=== PATIENT | female | born 1955 | race Caucasian/White ===

== ENCOUNTER → 2024-01-25 12:40 | Outpatient (REF) | payer MEDICARE, OTHER, SELFPAY | LOC: HWRAD 12:40 | PROVIDERS: ATTENDING PHYSICIAN Internal Medicine | DX: Z12.31 Encounter for screening mammogram for malignant neoplasm of breast (principal); Z78.0 Asymptomatic menopausal state | CPT/HCPCS: 77063; 77067; 77080 ==

== ENCOUNTER → 2024-05-07 14:01 | Outpatient (REF) | payer MEDICARE, OTHER, SELFPAY | LOC: PAVMRI 14:01 | PROVIDERS: ATTENDING PHYSICIAN Psychiatry & Neurology Neurology; FAMILY PHYSICIAN Internal Medicine | DX: R53.1 Weakness (principal) | CPT/HCPCS: 70553; 72141; A9575 ==

== ENCOUNTER → 2024-11-30 13:27 | Outpatient (REF) | payer MEDICARE, OTHER, SELFPAY | LOC: PAVMRI 13:27 | PROVIDERS: ATTENDING PHYSICIAN Psychiatry & Neurology Neurology; FAMILY PHYSICIAN Student in an Organized Health Care Education/Training Program | DX: G91.2 (Idiopathic) normal pressure hydrocephalus (principal) | CPT/HCPCS: 70551 ==

== ENCOUNTER 2025-02-08 08:40 | Observation (INO) | payer MEDICARE, OTHER, SELFPAY ==
[2025-02-07 22:30] VITALS: BP 164/82
[2025-02-07 22:31] VITALS: BP 164/82
[2025-02-07 22:33] VITALS: BMI 26.4
[2025-02-07 22:47] LABS: % Basophils 0.3 % (0-2); % Eosinophils 0.8 % (0-6); % Immature Granulocytes 0.5 % (0-0.5); % Lymphocytes 18.1 % (20.5-51.1); % Monocytes 6.6 % (1.7-9.3); % Neutrophils 73.7 % (42.2-75.2); Absolute Eosinophils 0.1 10^3/uL (0-0.7); Absolute Lymphocytes 1.2 10^3/uL (1.2-3.4); Absolute Monocytes 0.4 10^3/uL (0.1-0.6); Absolute Neutrophils 4.7 10^3/uL (1.4-6.5); Hematocrit 38.9 % (37.0-47.0); Hemoglobin 13.3 g/dL (12.0-16.0); Mean Corp Hgb Conc. 34.2 g/dL (33.0-37.0); Mean Corpuscular Hgb 29.2 pg (27.0-31.0); Mean Corpuscular Volume 85.5 fL (81.0-99.0); Nucleated Red Blood Cells % 0 %; Platelet Count 193 10^3/uL (130-400); Red Blood Cell Count 4.55 10^6/uL (4.20-5.40); Red Cell Dist. Width 12.8 % (11.5-14.5); White Blood Cell Count 6.3 10^3/uL (4.8-10.8)
[2025-02-07 23:00] VITALS: BP 153/76
[2025-02-07 23:00] LABS: AST (SGOT) 28 U/L (14-36); Albumin 4.7 g/dl (3.5-5.0); Alkaline Phosphatase 63 U/L (38-126); Blood Urea Nitrogen 16 mg/dl (7-17); Calcium 9.3 mg/dl (8.4-10.2); Carbon Dioxide 17 mmol/L (22-30); Chloride 110 mmol/L (98-107); Estimated Creatinine Clearance 59 ml/min; Glucose 151 mg/dl (70-99); Potassium 3.9 mmol/L (3.5-5.1); Sodium 140 mmol/L (135-145); Total Bilirubin 0.7 mg/dl (0.2-1.3); Total Protein 7.1 g/dl (6.3-8.2); eGFR > 60.00
[2025-02-07 23:11] LABS: Troponin I < 0.012 ng/ml
[2025-02-07 23:12] LABS: ALT (SGPT) < 30 U/L (0-35)
[2025-02-08] VITALS (16 sets, daily range): BP systolic 120–167; BP diastolic 58–91; PULSE 74–91; BMI 24.6
[2025-02-08 01:34] LABS: Urine Albumin Negative (Neg - Trace); Urine Bilirubin Negative (Negative); Urine Character Cloudy (Clear); Urine Glucose Negative (Negative); Urine Ketone 2+ (Negative); Urine Leukocyte Negative (Negative); Urine Nitrite Negative (Negative); Urine Occult Blood 1+ (Negative); Urine Specific Gravity 1.015 (<1.030); Urine Urobilinogen Negative (Neg - 1+)
[2025-02-08 01:37] LABS: Urine Color Yellow
[2025-02-08 01:42] LABS: Urine Bacteria Few (Negative); Urine Red Blood Cell 0-2 /HPF (0-2); Urine Squamous Cell 0-2 /LPF (Few); Urine White Cell 0-2 /HPF (0-5)
[2025-02-08 01:50] LABS: Amphetamines Negative (Negative); Barbiturates Negative (Negative); Benzodiazepines Negative (Negative); Buprenorphine Negative (Negative); Cocaine Negative (Negative); Marijuana Negative (Negative); Methadone Negative (Negative); Methamphetamines Negative (Negative); Opiates Negative (Negative); Phencyclidine Negative (Negative); Tricyclic Antidepressants Negative (Negative)
[2025-02-08 02:11] LABS: Glucose - Point of Care 138 mg/dl (70-99)
--- NOTE | 2025-02-08 04:16 | ED.GENMED ---
History of Present Illness
General
Chief Complaint: Fainting/Passed Out
Source: patient
Time Seen by Provider: 02/08/25 03:33
History of Present Illness
History of Present Illness:
This patient is a 69-year-old female who states that she occasionally gets bladder urgency particularly at night. She went to go to the bathroom and she insist that she was just urinating although triage note describes patient trying to have a
bowel movement. She was told that her heard a noise and found her on the bedroom floor. She remembers EMS arriving and according to triage patient at that time was noted to be pale diaphoretic. Patient was given Zofran and fluids en
route. Patient states she feels 'pretty good', with the exception of a dry mouth. She denies chest pain, palpitations, dyspnea, headache, neck pain, numbness, tingling, focal weakness, abdominal pain, nausea, vomiting. However, patient states
that she also recalls that her speech was 'garbled' while trying to answer questions with EMS and even upon arrival here, now resolved. This is similar to her symptoms when she had a TIA in the past.
Case d/w , Kwesi...she was at counter...and started to pass out, he caught her. She could talk, he brought her over to sofa, episode lasted a few minutes. Notes she has alot of anxiety. She hadn't eaten as much as usual. Took motrin with
benadryl. THen, she was fine. Later in the day, he heard a boom and she was on floor next to bed, with a small amount of vomit next to her. She didn't even know that she was ont he floor, seemed 'out of it'. He brought her to the Bathroom, and
she had a small bm. Her bp was elevated, pulse 50...and then to 80. He walked her back to the bed and called EMS.
Past History
Past History
ED Past Medical History: Other (TIA, hypercholesterolemia)
ED Past Surgical History: Gynecological
Social History
Tobacco: Non-smoker
Alcohol: None
Drug: None
Personal:
Living: with family
Phy Exam
Physical Exam
Physical Exam:
GENERAL: Alert , in no apparent distress
EYE: pupils equal and reactive, EOMI, no nystagmus, no photophobia
NECK: Supple, no significant adenopathy.
ENT: o/p clr, mm mildly dry
CARDIAC: Regular rate and rhythm .
LUNGS: Clear breath sounds bilaterally, no acute respiratory distress, no wheezes/rales/rhonchi
ABDOMEN: Soft, without focal tenderness, no r/g, no cvat
NEUROLOGICAL: Alert and oriented, no focal neuro deficits, motor 5 out of 5, sensory intact, [id number] normal, cranial nerves II through XII intact
SKIN: Warm and dry, skin intact.
MUSCULOSKELETAL: No edema, well perfused.
PSYCH: Normal and appropriate interaction.
Course
Orders/Labs/Results
Orders:
Orders
02/07/25 22:33
Electrocardiogram (*1) Urgent
Reason for Study: Syncope
EKG- Treatment ONCE
02/07/25 22:37
Complete Blood Count/With Diff Urgent
Comprehensive Metabolic Panel Urgent
Troponin I Urgent
02/07/25 23:15
Straight Cath As Directed
Frequency: One time now
02/08/25 01:25
Urinalysis Reflex To Culture Urgent
Date Specimen was Collected: 02/08/25
Time Specimen was Collected: 00:51
Urine Drug Abuse Screen Urgent
Date Specimen was Collected: 02/08/25
Time Specimen was Collected: 00:51
Urine Microscopic Reflex Cult Urgent
02/08/25 04:14
Electrocardiogram (*1) Urgent
Reason for Study: Syncope
EKG- Treatment ONCE
02/08/25 04:15
CT Head W/o Iv Contrast Urgent
Comment:
Reason For Exam: syncope
0.9% Sodium Chloride 500 ml [Nss] 500 ml IV BOLUS
02/08/25 04:40
Troponin I Urgent
02/08/25 05:25
Lorazepam [Ativan] 1 mg IV NOW STA
02/08/25 Breakfast
Regular
At Your Request: Full Participation
Does patient need a safe tray?: No
02/08/25 08:36
Admit/Transfer Patient As Directed
Co-Sign Provider:
Level of Care: Observation services
Assign to:: Telemetry
Physician / Group: Zay Bryan
Diagnosis: Syncope
Reason for Telemetry: Syncope
Date to Stop Telemetry: 02/10/25
Time to Stop Telemetry: 11:00
PRN Pain Medication Management As Directed
May give lesser potent ordered pain med per pt: Yes
preference::
Protocol:: Medication orders for pain may be administered in a
manner that supports deferring to patient preference
when the pt is:
- Requesting an ordered lesser potent pain medication.
Least to most potent pain medications are defined
as: acetaminophen < NSAID < tramadol < opioids
(morphine, oxycodone, hydromorphone).
- Requesting a lesser dose of the same medication IF
ORDERED.
- Requesting a less intrusive route of administration
if both routes are prescribed by the provider (PO <
IV).
02/08/25 08:37
Code Status As Directed
Resuscitation Status: Full Code
02/08/25 08:56
D-Dimer Urgent
02/08/25 09:46
Acetaminophen [Tylenol] 650 mg PO Q4HPRN PRN
Bisacodyl [Dulcolax] 10 mg RECTAL [id number] PRN
Clonazepam [Klonopin] 0.5 mg PO HSPRN PRN
Docusate W/Senna [Senokot-S] 1 tablet PO BIDPRN PRN
Polyethylene Glycol Powder [Miralax] 17 grams PO DAILYPRN PRN
02/08/25 09:46
Activity As Directed
Activity Level: With Assistance
Orthostatic Vital Signs As Directed
Orthostatic VS Frequency: BID
Vital Signs As Directed
Frequency: Per unit guidelines
Pt Eval And Treat Routine
Activity Level: With Assistance
DX Deep Vein Thrombosis Video Routine
02/08/25 18:00
Enoxaparin Sodium [Lovenox] 40 mg SC QPM
Escitalopram Oxalate [Lexapro] 20 mg PO QPM
Rosuvastatin Calcium [Crestor] 10 mg PO QPM
02/09/25 06:00
Basic Metabolic Panel IN AM
Complete Blood Count/No Diff IN AM
02/09/25 08:00
Aspirin Low Dose EC [Aspir Low (Enteric Coated)] 81 mg PO DAILY
02/10/25 06:00
Basic Metabolic Panel IN AM
Complete Blood Count/No Diff IN AM
02/10/25 11:00
DC Protocol for Telemetry ONCE
Abnormal Lab Results
02/07/25 02/08/25 02/08/25
22:37 01:25 02:09
MPV 11.0 H fL
(7.4-10.4)
Lymphocytes % 18.1 L %
(20.5-51.1)
Chloride 110 H mmol/L
(98-107)
Carbon Dioxide 17 L mmol/L
(22-30)
Glucose 151 H mg/dl
(70-99)
Urine Ketones 2+ A
(Negative)
Ur Occult Blood Reflex 1+ A
(Negative)
Urine Bacteria (Reflex) Few A
(Negative)
POC Glucose 138 H mg/dl
(70-99)
02/07/25 22:37
02/07/25 22:37
Vital Signs
Initial and Last Documented VS:
Initial Vital Signs
Temp Pulse Resp BP Pulse Ox
98.3 F 73 18 164/82 99
02/07/25 22:30 02/07/25 22:30 02/07/25 22:30 02/07/25 22:30 02/07/25 22:30
Last Documented Vital Signs
Temp Pulse Resp BP Pulse Ox
98.9 F 72 16 120/58 95
02/08/25 16:13 02/08/25 16:13 02/08/25 16:13 02/08/25 16:13 02/08/25 16:13
*Critical Care Note
Total Time (30-74mins, 75-104mins- exclusive of procedures): Not Applicable
Update Note
Update Note:
Patient presents to the Emergency Department with reported syncopal event
Number and Complexity of Problems Addressed at the Encounter
� Chronic conditions affecting care:
� Acute Exacerbation and/or Progression of Chronic Illness:
� Differential Diagnosis includes: But not limited to micturition/defecation syncope, dehydration, electrolyte disorder, TIA, etc. etc.
Amount and/or Complexity of Data to be Reviewed and Analyzed
� I performed an independent evaluation of and my interpretation is:
EKG: First ECG difficult to read that that that I have ordered a second. ECG #2 normal sinus rhythm, in comparison to prior ECG patient's T wave inversions inferiorly and laterally are more pronounced
CT:
Xrays:
Laboratory Studies: Slightly elevated glucose, mildly low bicarb, urine demonstrates ketones consistent with suspected dehydration, UDS unremarkable, first troponin normal
Other:
� Review of other/old records reveals:
� Clinical information was obtained by an independent historian:her , Kwesi.
� Prescriptions/Medications Considered but not given:
� Further testing considered but not performed:
Risk of Complications and/or Morbidity or Mortality of Patient Management
� Social determinants of health affecting care:
� Discussion with other providers (PCP, Hospitalists, Consultants, etc):
� Escalation of care including admission/observation vs risk of discharge considered:Pt she had two syncopal events yesterday, unclear etiology. ?related to meds she is newly taking, espec anticholinregics such as mtorin with
benadryl and bentyl. Of note, pt had urinary retention here (relieved with straight cath here), also potentially related to these new meds. Suspect pt is mildly dehydrated. In regards to report of garbled speech, confirms that this
happened with each event. These are similar sxs to prior tia, and recommendation for workup (t/c MRI). Also ntoed to have increase in T wave inversions on ECG. No cp, trop times 2 wnl.
ED Attending Note
-
Portions of this chart may have been created with voice recognition software.� Occasional wrong word or��sound alike� substitutions may have occurred due to the inherent limitations of voice recognition software.
Discharge Plan
Departure
Patient Disposition: Admit
Date of Disposition: 02/08/25
Time of Disposition: 07:26
Admit to: Telemetry
Presentation/result/management discussed w/ accepting MD/DO: Hospitalist
Discharge Problem:
Syncope
Interventions
Interventions:
*Risk Screen - Suicide Last Done: 02/07/25 22:34
*General Assessment Last Done: 02/07/25 22:34
*Neglect/Abuse Screening Last Done: 02/07/25 22:34
*ED- Fall Risk Assessment Last Done: 02/07/25 22:34
*ED COVID-19 Vaccine History Last Done: 02/07/25 22:34
*Nursing Disposition Last Done: 02/08/25 09:03
ED- Cardiac Assessment Last Done: 02/07/25 22:34
ED- Neurological Assessment Last Done: 02/07/25 22:34
Discharge Date and Time
Discharge Date/Time: 02/08/25 09:34
[2025-02-08] MEDS: NSS 500 IV (04:57)
[2025-02-08 05:15] LABS: Troponin I < 0.012 ng/ml
[2025-02-08] MEDS: ATIVAN 1 MG IV (05:41)
--- NOTE | 2025-02-08 08:39 | HPS.HSE ---
Family Physician
-
Family Physician: Susan Sepulveda MD, Resident
Chief Complaint
-
Syncope
History of Present Illness
Patient is a 69-year-old female with past medical history of depression/anxiety, hyperlipidemia, history of TIA was brought into ER by family after patient passed out. Apparently patient took 2 Advil PM as was having difficulty sleeping, this
contains 38 mg of Benadryl in single pill. Patient woke up in the night and was in bathroom trying to void, apparently patient denies of having any history of bladder issue but states that she has to press externally on her lower abdomen to
completely empty her bladder. At certain point patient passed out and heard a loud thud in the bathroom and found patient on the floor. No reported head injury. Patient denies of having any prodromal symptoms of chest
discomfort/palpitation/diaphoresis/nausea . Patient woke up after a few minutes and patient remember that EMS staff patient getting patient in the ambulance by the time she regained consciousness. Evidently patient had garbled speech which cleared
as well. No reported jerking movements of body/bladder/bowel incontinence. No history of intracranial hemorrhage/seizures/trauma/motor vehicle accident.
Patient previous TIA episode was also an episode of garbled speech when patient was in store talking to her family member and noted to having incomprehensible speech. Neuro/cardio workup with MRI brain was negative and patient was not found to have
any cardiac arrhythmia at the time. Patient denies of having any true syncope episode
Medical History
Past Medical History
Past Medical History: Reports Other
Additional Past Medical History:
depression/anxiety, hyperlipidemia, history of TIA
Past Surgical History: Reports Other
Social History
Tobacco: Non-smoker
Alcohol: None
Drug: None
Family History
Family History: Not pertinent
Allergies / Home Medications
Allergies reflects when Allergies were last updated in [facility].
Home Medications with original date entered in [facility]
Allergy/Medication List:
Allergies
Allergy/AdvReac Type Severity Reaction Status Date / Time
No Known Allergies Allergy Verified 07/15/23 13:24
Home Medications
dicyclomine 10 mg capsule 10 mg PO ACHS PRN abdominal cramps 07/11/23
escitalopram oxalate 20 mg tablet 20 mg PO QPM Mental Health/Anxiety 07/11/23
rosuvastatin 10 mg tablet 10 mg PO QPM High Cholesterol 07/11/23
aspirin 81 mg tablet,delayed release 81 mg PO DAILY #0 tabs 07/13/23
clonazepam 0.5 mg tablet 0.5 mg PO HSPRN PRN anxiety/sleep 07/15/23
Review of Systems
-
A 12 point ROS was completed and negative except as noted: Yes
Physical Exam
Vital Signs
Vital Signs
Temp Pulse Resp BP Pulse Ox
98.3 F 75 22 141/91 97
02/07/25 22:30 02/08/25 07:00 02/08/25 07:00 02/08/25 07:00 02/08/25 06:20
Physical Exam
HEENT: No Oxygen
Respiratory: Clear
Cardiac: S1/S2 and Regular Rhythm; No Murmur or Rub
GI: Soft, Non Tender, Non Distended and Normal Bowel Sounds; No Organomegaly
Musculoskeletal: No Clubbing, No Cyanosis and No Edema
Skin: No Rash
Neuro: Nonfocal/grossly intact
Laboratory Results
-
02/07/25 22:37
02/07/25 22:37
Laboratory Results
Total Bilirubin 0.7 mg/dl (0.2-1.3) 02/07/25 22:37
AST 28 U/L (14-36) 02/07/25 22:37
ALT < 30 U/L (0-35) 02/07/25 22:37
Alkaline Phosphatase 63 U/L (38-126) 02/07/25 22:37
Troponin I < 0.012 ng/ml 02/08/25 04:40
Impression/Plan
-
1. Syncope
Presumed vasovagal in nature
- Patient woke up at night trying to void and was found down on the bathroom floor by
- Patient denies any prodromal symptoms of nausea/diaphoresis/shortness of breath/chest
- No previous history of syncope
- Not on any blood pressure medications at home
- EKG showing sinus rhythm with some T wave inversion in V3-V6 lead, troponin negative
- CT head without any acute abnormality
- No previous history of head trauma/intracranial bleed. No history of seizures.
- Maintain on telemetry monitoring for 24 hours
- Check orthostatic vitals twice daily
- Already got 1 L of normal saline, monitor
2. Speech changes
History of TIA
- Patient had history of TIA workup with MRI negative and cardiology/neurology evaluation was done in the past
- Patient noted to have garbled speech after regaining partial consciousness and this is likely due to syncope and not TIA/stroke
- Speech has cleared completely at this point continue monitoring
3. Mild toxic encephalopathy
- Patient somewhat disoriented, stated of taking 2 Advil PM yesterday night - total of 76mg of benadryl in it
- No other signs suggestive of any other acute pathology, monitor for
4. Hyperlipidemia
- Continue on home dose of rosuvastatin
5. Depression/anxiety
- Maintain on home dose of Klonopin/escitalopram
DVT PPX - lovenox
Full code
Total time spent : 78 mins
I personally saw and examined the patient.
I have reviewed all diagnostic interpretations and treatment plans as written.
Time includes patient management by me, time spent at the patients bedside, time to review lab and imaging results, discussing patient care, documentation in the medical record, and time spent with the family or caregiver and discussing care plan
with RN/Consultants.
--- NOTE | 2025-02-08 14:11 | PTOTSP ---
The patient was able to ambulate and perform stairs without difficulty, anticipates returning home at discharge and resuming work on Monday. No PT needs identified at this time, will sign off.
[2025-02-08] MEDS: LOVENOX 40 MG SC (17:57)
[2025-02-08] MEDS: CRESTOR 10 MG PO (17:57)
[2025-02-08] MEDS: LEXAPRO 20 MG PO (17:57)
[2025-02-08] MEDS: KLONOPIN 0.5 MG PO (21:06)
[2025-02-09 03:32] VITALS: BP 132/86
[2025-02-09 07:55] VITALS: BP 149/81; BP 150/71; BP 151/85; PULSE 63; PULSE 71; PULSE 83
[2025-02-09 08:35] LABS: Hematocrit 33.2 % (37.0-47.0); Hemoglobin 11.2 g/dL (12.0-16.0); Mean Corp Hgb Conc. 33.7 g/dL (33.0-37.0); Mean Corpuscular Hgb 29.6 pg (27.0-31.0); Mean Corpuscular Volume 87.8 fL (81.0-99.0); Mean Platelet Volume 11.6 fL (7.4-10.4); Platelet Count 154 10^3/uL (130-400); Red Blood Cell Count 3.78 10^6/uL (4.20-5.40); Red Cell Dist. Width 13.2 % (11.5-14.5); White Blood Cell Count 7.2 10^3/uL (4.8-10.8)
[2025-02-09] MEDS: ASPIR LOW (ENTERIC COATED) 81 MG PO (08:37)
[2025-02-09 08:43] LABS: Blood Urea Nitrogen 15 mg/dl (7-17); Calcium 8.9 mg/dl (8.4-10.2); Carbon Dioxide 22 mmol/L (22-30); Chloride 115 mmol/L (98-107); Estimated Creatinine Clearance 60 ml/min; Glucose 104 mg/dl (70-99); Potassium 3.4 mmol/L (3.5-5.1); Sodium 143 mmol/L (135-145); eGFR > 60.00
--- NOTE | 2025-02-09 09:59 | W.PN.HOSP.TC ---
Today's Communication/Plan
-
d/c home
Assessment / Plan
Assessment / Plan
1. Syncope - vasovagal in nature
- Patient woke up at night trying to void and was found down on the bathroom floor by
- Patient denies any prodromal symptoms of nausea/diaphoresis/shortness of breath/chest
- No previous history of syncope
- Not on any blood pressure medications at home
- EKG showing sinus rhythm with some T wave inversion in V3-V6 lead, troponin negative
- CT head without any acute abnormality
- No previous history of head trauma/intracranial bleed. No history of seizures.
- No cardiac arrhythmia on teletypesetter monitor
- Ortho vitals negative
2. Speech changes
History of TIA
- Patient had history of TIA workup with MRI negative and cardiology/neurology evaluation was done in the past
- Patient noted to have garbled speech after regaining partial consciousness and this is likely due to syncope and not TIA/stroke
- Speech has cleared completely at this point continue monitoring
3. Mild toxic encephalopathy - resolved
- Patient somewhat disoriented, stated of taking 2 Advil PM in night before admission - total of 76mg of benadryl in it
- No other signs suggestive of any other acute pathology, monitor for
4. Hyperlipidemia
- Continue on home dose of rosuvastatin
5. Depression/anxiety
- Maintain on home dose of Klonopin/escitalopram
6. Elevated D-dimer
- CT chest PE negative
7. Right lower lobe pulmonary nodule
- Millimeter size, non smoker. f/u with pulm
DVT PPX - lovenox
Full code
More than 30 minutes spent in discharge including
Final examination of the patient
Summarizing hospital stay
Instructions for continuing care to all relevant caregivers
Preparation of discharge records, prescriptions, and referral forms
Total time spent (in minutes):39 mins
Anticipated Discharge: Today
Subjective/Interval History
-
Date of Service: February 09, 2025
Resting comfortably in bed
No cardiac arrhythmia noted on teletypesetter monitor
No further episodes of syncope
Objective Data
-
Labs:
Laboratory Results
02/09/25 02/09/25
07:02 07:03
WBC 7.2
Hgb 11.2 L
Hct 33.2 L
Plt Count 154 D
Sodium 143
Potassium 3.4 L
Chloride 115 H
Carbon Dioxide 22
BUN 15
Creatinine 0.7
Glucose 104 H
Calcium 8.9
Vital Signs:
Vital Signs
Temp Pulse Resp BP Pulse Ox
98.4 F 63 16 150/71 97
02/09/25 07:55 02/09/25 07:55 02/09/25 07:55 02/09/25 07:55 02/09/25 09:53
I&O
02/08/25 02/09/25 02/10/25
06:59 06:59 06:59
Output Total 1250 / 1250
Balance -1250 / -1250
Review of Systems
-
All other systems: Reviewed and negative
Physical Exam
-
General: No Apparent Distress and Comfortable
HEENT: Negative Oxygen
Respiratory: Clear to Auscultation
Cardiac: Regular Rhythm and S1/S2; Negative Murmur or Rub
GI: Soft, Nontender and Nondistended
Musculoskeletal: No Edema
Neuro: Awake, Alert, Oriented, No Motor Deficits and Nonfocal/Grossly Intact
Psych: Calm
[2025-02-09 11:37] VITALS: BP 127/59
--- NOTE | 2025-02-09 11:47 | CM ---
Patient seen bedside; cleared for discharge to home. Pt is (I) amb and adls. Lives with her who will drive her home.
Patient denies need for VN.
OBS form reviewed, signed and added to chart.
Plan:home no needs.
--- NOTE | 2025-02-09 13:28 | W.DCSUMMARY ---
Discharge Summary
Discharge Data
Date of Admission: 02/08/25
Date of Discharge: 02/09/25
-
Pending Results: No
Hospital Course
Discharging Physician : Dr Zay Bryan
Disposition : To home
Primary care physician : Susan Sepulveda MD, Resident
Principal Discharge diagnosis :
Vasovagal syncope
Mild toxic encephalopathy
Pulmonary nodule
Speech changes post syncope
Chronic Discharge diagnosis :
History of transient ischemic attack
Hyperlipidemia
Depression/anxiety
Hospital Course :
69-year-old female with no mentioned past medical history came to ER after patient passed out in the bathroom. Patient apparently woke up in the middle of night and was straining to urinate. Patient does complain of difficulty voiding in the past
and on top of that patient took 2 Advil PM which contains high amount of Benadryl. Patient was found on the floor by the no reported head injury. Patient regained consciousness and was having some slurring of speech which cleared later as
well. In ER CT head was negative for any acute issues. D-dimer was elevated and CT chest PE was negative for any clot. Incidentally was found to 4 mm right lower lobe pulmonary nodule. patient was monitored in the hospital for 24 hours. EKG
showed known right bundle branch block. Orthostatic vitals were negative. Telemetry monitoring did not show any cardiac arrhythmia. Patient did not have any further recurrence. Patient was advised to avoid any anticholinergic is likely worsening
her underlying urinary symptoms. Patient was cleared to be discharged to home level at this point.
Important imaging findings :
None
Procedure findings :
None
Discharge Plan
-
Patient Disposition: Home (Routine Discharge)
Discharge Diagnosis/Procedures: Vasovagal syncope
Condition: Fair
Diet: Regular
Activity: As tolerated
Driving Restrictions: As prior to admission
Bathing Restrictions: OK to Shower
Referrals:
Chris Cook MD [Active] -
Susan Sepulveda MD, Resident [Family Provider] - in one week
Additional Discharge Medication Instructions: Stop benadryl or anitcholinergic medication as possible.
Prescriptions:
Continued
escitalopram oxalate 20 mg tablet
20 mg PO QPM
rosuvastatin 10 mg tablet
10 mg PO QPM
aspirin 81 mg Tablet,Delayed Release (Dr/Ec)
81 mg PO DAILY Qty: 0 0RF
clonazepam 0.5 mg tablet
0.5 mg PO HSPRN PRN (Reason: anxiety/sleep)
Patient Comments:
07/15/2023: last filled 04/25/23, 30 tabs for 30 days from [facility]
Rx Instructions:
*Takes before Eszopiclone*
Discontinued
dicyclomine 10 mg capsule
10 mg PO ACHS PRN (Reason: abdominal cramps)
Discharge Orders:
Discharge Patient (As Directed); Ordered 02/09/25
Ordered By: Zay Bryan
Discharge Date and Time
Discharge Date/Time: 02/09/25 12:42
Print Language: [place]
[2025-02-10 19:04] LABS: Hepatitis C Antibody Negative (Negative)
== END 2025-02-09 12:42 | disposition home or self-care (01) ==
LOC: 4 EAST ACU 08:40
PROVIDERS: Student in an Organized Health Care Education/Training Program; ADMITTING PHYSICIAN Hospitalist; EMERGENCY PHYSICIAN Emergency Medicine; FAMILY PHYSICIAN Student in an Organized Health Care Education/Training Program
DX: R55 Syncope and collapse (principal); Z86.73 Personal history of transient ischemic attack (TIA), and cerebral infarction without residual deficits; G92.9 Unspecified toxic encephalopathy; F41.9 Anxiety disorder, unspecified; F32.A Depression, unspecified; R91.1 Solitary pulmonary nodule; I45.10 Unspecified right bundle-branch block
CPT/HCPCS: 51701; 51798; 70450; 71275; 80048; 80053; 80306; 81003; 81015; 82962; 84484; 85025; 85027; 85379; 86803; 93005; 96361; 96374; 97161; 99285; G0378; Q9967

== ENCOUNTER 2025-03-30 20:41 | Inpatient (IN) | payer MEDICARE, OTHER, SELFPAY ==
[2025-03-30] VITALS (36 sets, daily range): BP systolic 117–208; BP diastolic 59–103; BMI 23.3
--- NOTE | 2025-03-30 18:58 | ED.CVA ---
History of Present Illness
General
Chief Complaint: CVA/TIA Symptoms
Source: ambulance crew
Exam Limitations: clinical condition and non verbal-adult
Time Seen by Provider: 03/30/25 18:57
Nursing documentation reviewed up to this point in time: agreed with
Onset of Stroke Symptoms
Onset of symptoms known: Yes
Date of onset of symptoms: 03/30/25
Time of onset of symptoms: 17:00
Time pt last seen normal is known: Yes
Date last time pt seen normal: 03/30/25
Time last time pt seen normal: 17:00
History of Present Illness
History of Present Illness:
69-year-old female prehospital stroke alert last normal at 5 PM apparently at the dinner aphasic EMS was called hypertensive, prehospital stroke alert called
Past History
Past History
ED Past Medical History: Other (TIA, hypercholesterolemia)
ED Past Surgical History: Gynecological
Social History
Tobacco: Non-smoker
Alcohol: None
Drug: None
Personal:
Living: with family
Phy Exam
Physical Exam
Physical Exam:
Physical Exam
General: no apparent distress, not acutely ill
Neck: No tongue bite
Heart: s1/s2 regular rate and rhythm, no murmur. equal radial pulses.
Lungs: no acute respiratory distress. clear bilaterally
Abdomen: Nontender
Neuro: Expressive aphasia moving all extremities question visual field defect
Skin: no rash
Psychiatric: well kept. interactive and cooperative
Extremities: no edema.
Course
Orders/Labs/Results
Orders:
Orders
03/30/25 18:46
CT HEAD STROKE ALERT W/o Cont Stat
Comment:
Reason For Exam: aphasia since 1699
03/30/25 18:48
CT HEAD/NECK ANG STROKE ALERT Stat
Comment:
Reason For Exam: aphasia since 1700
03/30/25 19:00
EKG [Electrocardiogram (*1)] Urgent
Reason for Study: TIA/Stroke
EKG- Treatment ONCE
03/30/25 19:07
Labetalol HCl [Trandate] 20 mg IV NOW STA
03/30/25 19:08
Tenecteplase [Tnkase] 16 mg Syringe [Syringe Non-Pump] 0 ml IV NOW
Provider explained risk/benefits to patient &/or caregiver?: Yes
03/30/25 19:16
Complete Blood Count/With Diff Stat
Comprehensive Metabolic Panel Stat
PTT Stat
Prothrombin Time Stat
03/30/25 19:33
Labetalol HCl [Trandate] 20 mg .ROUTE .STK-MED ONE
03/30/25 19:40
Labetalol HCl [Trandate] 25 mg IV NOW STA
03/30/25 19:41
HydrALAZINE [Apresoline] 20 mg .ROUTE .STK-MED ONE
03/30/25 19:42
Labetalol HCl [Trandate] 20 mg .ROUTE .STK-MED ONE
03/30/25 19:51
HydrALAZINE [Apresoline] 10 mg IV NOW STA
03/30/25 19:55
Nicardipine 40 mg/200 ml [Cardene] 40 mg in 200 ml .ROUTE .STK-MED
03/30/25 20:00
Nicardipine 40 mg/200 ml [Cardene] 40 mg in 200 ml IV PER PROTOCOL
Initial dose in mg/hr, then titrate:: 5
Titrate to keep:: BP < 180/105 mmHg
Titrate by mg/hr:: 2.5 mg/hr
Frequency of titrations (minutes):: 5-15 minutes
Maximum dose in mg/hr:: 15
Begin to taper infusion when:: Remained at goal for 2hrs
Taper by mg/hr:: 2.5 mg/hr
Frequency of taper (minutes) if patient maintains goal:: every 15-30 minutes
Taper to off?: Yes
If infusion off & no longer maintaining goal:: Contact Provider
03/30/25 20:27
Admit/Transfer Patient As Directed
Co-Sign Provider:
Level of Care: Inpatient admission
Assign to:: ICU
Physician / Group: [facility]
Diagnosis: TIA/CVA
Reason for Hospitalization: Stroke
Expected length of stay greater than two midnights?: Yes
ELOS- Estimated Length of Stay in days: 2
I certify the patient meets the requirements for IP care: Yes
PRN Pain Medication Management As Directed
May give lesser potent ordered pain med per pt: Yes
preference::
Protocol:: Medication orders for pain may be administered in a
manner that supports deferring to patient preference
when the pt is:
- Requesting an ordered lesser potent pain medication.
Least to most potent pain medications are defined
as: acetaminophen < NSAID < tramadol < opioids
(morphine, oxycodone, hydromorphone).
- Requesting a lesser dose of the same medication IF
ORDERED.
- Requesting a less intrusive route of administration
if both routes are prescribed by the provider (PO <
IV).
03/30/25 20:28
Code Status As Directed
Resuscitation Status: Full Code
Abnormal Lab Results
03/30/25 03/30/25
19:10 19:16
RBC 3.99 L 10^6/uL
(4.20-5.40)
Hct 34.4 L %
(37.0-47.0)
MPV 10.6 H fL
(7.4-10.4)
APTT 23.0 L Sec
(23.4-35.0)
Chloride 110 H mmol/L
(98-107)
BUN 24 H mg/dl
(7-17)
Glucose 114 H mg/dl
(70-99)
POC Glucose 118 H mg/dl
(70-99)
03/30/25 19:16
03/30/25 19:16
Vital Signs
Initial and Last Documented VS:
Initial Vital Signs
Pulse Resp BP
81 29 208/86
03/30/25 19:04 03/30/25 19:04 03/30/25 19:04
Last Documented Vital Signs
Temp Pulse Resp BP Pulse Ox
99.1 F 80 28 142/72 100
03/30/25 19:09 03/30/25 20:36 03/30/25 20:36 03/30/25 20:36 03/30/25 19:30
MDM/Problems Addressed
Differential Diagnosis Includes:
Stroke intracerebral hemorrhage seizure hypertensive urgency
MDM/Problems Addressed:
Aphasia
*Pulse Oximetry
SaO2: 99
Oxygen Mode of Delivery: Room air
Patient hypoxic: no
*EKG
Interpreted by ED Provider?: Yes
Interpretation: normal
Comparison EKG: no comparison EKG present
Heart Rate: 98
Rate: normal
Rhythm: sinus
Ischemia: non-specific ST changes
*Travel Nurse Interpretation
Rate: normal
Interpretation: normal
Heart Rate: 98
*Critical Care Note
Total Time (30-74mins, 75-104mins- exclusive of procedures): 75
Update Note
Update Note:
Update, CT reports noted, blood pressure up suspect she is a candidate for TNK will give labetalol
8:15 PM update
Numerous conversations with patient daughter spouse over the phone neurology over telehealth, treated with labetalol x 2 hydralazine Cardene risk benefits reviewed with daughter for TNK
Differential would include CVA hypertensive cephalopathy, anxiety drug withdrawal
ED Attending Note
-
Portions of this chart may have been created with voice recognition software.� Occasional wrong word or��sound alike� substitutions may have occurred due to the inherent limitations of voice recognition software.
Discharge Plan
Departure
Patient Disposition: Admit
Date of Disposition: 03/30/25
Time of Disposition: 20:16
Admit to: ICU
Presentation/result/management discussed w/ accepting MD/DO: Hospitalist
Patient with high blood pressure during this ER visit?: Yes
Condition: Critical
Discharge Problem:
Aphasia
Interventions
Interventions:
*Risk Screen - Suicide Last Done: 03/30/25 19:07
*General Assessment Last Done: 03/30/25 19:07
*Neglect/Abuse Screening Last Done: 03/30/25 19:07
*ED- Fall Risk Assessment Last Done: 03/30/25 19:09
ED- Neurological Assessment Last Done: 03/30/25 19:01
[2025-03-30 19:11] LABS: Glucose - Point of Care 118 mg/dl (70-99)
[2025-03-30] MEDS: TRANDATE 20 MG IV (19:24)
[2025-03-30 19:28] LABS: Hematocrit 34.4 % (37.0-47.0); Hemoglobin 12.0 g/dL (12.0-16.0); Mean Corp Hgb Conc. 34.9 g/dL (33.0-37.0); Mean Corpuscular Volume 86.2 fL (81.0-99.0); Nucleated Red Blood Cells % 0 %; Platelet Count 200 10^3/uL (130-400); Red Cell Dist. Width 13.2 % (11.5-14.5)
[2025-03-30 19:38] LABS: INR 0.92; PT 12.7 Sec (11.4-14.6)
[2025-03-30 19:39] LABS: APTT 23.0 Sec (23.4-35.0)
[2025-03-30] MEDS: TRANDATE 25 MG IV (19:41)
[2025-03-30 19:43] LABS: ALT (SGPT) 17 U/L (0-35); AST (SGOT) 26 U/L (14-36); Albumin 4.4 g/dl (3.5-5.0); Alkaline Phosphatase 67 U/L (38-126); Blood Urea Nitrogen 24 mg/dl (7-17); Calcium 9.6 mg/dl (8.4-10.2); Carbon Dioxide 22 mmol/L (22-30); Chloride 110 mmol/L (98-107); Glucose 114 mg/dl (70-99); Potassium 4.5 mmol/L (3.5-5.1); Sodium 138 mmol/L (135-145); Total Protein 7.0 g/dl (6.3-8.2); eGFR > 60.00
[2025-03-30] MEDS: APRESOLINE 10 MG IV (19:51)
[2025-03-30] MEDS: CARDENE 200 IV (20:00)
[2025-03-30] MEDS: TNKASE 3.2 MG IV (20:06)
--- NOTE | 2025-03-30 20:20 | HPS.HSE ---
Family Physician
-
Family Physician: NOT KNOW UNKNOWN - PT DOES
Chief Complaint
-
Aphasia
History of Present Illness
This is a 69-year-old female with past medical history significant for hyperlipidemia, prior history of a TIA, and depression and anxiety who presents to the emergency department with episode of aphasia since 5 PM.
Patient was seen in urgent care 2 days ago and found to be hypertensive to the 170s systolic. She was not started on any medications at that time. She has chronic anxiety and has been having difficulty sleeping which she uses clonazepam 0.5 mg at
night for. She is also on Lexapro 50 mg daily in the evenings. She has otherwise been in usual state of health and that pain out with daughter during the day when she got home. She felt dehydrated and was about to give her some more
hydration. Daughter reported that the patient started having difficulty speaking. This is similar episodes on her prior evaluations for TIAs twice in the past. EMS was called and patient was really brought to the emergency department under a
stroke alert. She had no focal neurological deficits otherwise.
In the emergency department patient was hypertensive blood pressure currently 158/71 on nicardipine, pulse rate 81 she is satting 100% with a temp of 99.1.
ECG shows normal sinus rhythm at a rate of 76. No acute ischemic changes. CBC unremarkable, electrolyte BUN/creatinine normal.
CT angio of the head and neck shows no evidence of intracranial high-grade stenosis or large vessel occlusion, and minimal calcification involving the right proximal right ICA noted, beaded appearance of the cervical internal carotid arteries
bilaterally suggestive of fibromuscular dysplasia but no evidence of high-grade stenosis.
Medical History
Past Medical History
Past Medical History: Reports Other
Additional Past Medical History:
depression/anxiety, hyperlipidemia, history of TIA
Past Surgical History: Reports Other
Social History
Tobacco: Non-smoker
Alcohol: None
Drug: None
Family History
Family History: Not pertinent
Allergies / Home Medications
Allergies reflects when Allergies were last updated in [facility].
Home Medications with original date entered in [facility]
Allergy/Medication List:
Allergies
Allergy/AdvReac Type Severity Reaction Status Date / Time
No Known Allergies Allergy Verified 07/15/23 13:24
Home Medications
dicyclomine 10 mg capsule 10 mg PO ACHS PRN abdominal cramps 07/11/23
escitalopram oxalate 20 mg tablet 20 mg PO QPM Mental Health/Anxiety 07/11/23
rosuvastatin 10 mg tablet 10 mg PO QPM High Cholesterol 07/11/23
aspirin 81 mg tablet,delayed release 81 mg PO DAILY #0 tabs 07/13/23
clonazepam 0.5 mg tablet 0.5 mg PO HSPRN PRN anxiety/sleep 07/15/23
Review of Systems
-
Constitutional: Reports No Symptoms
EENT: Reports No Symptoms
Respiratory: Reports No Symptoms
Cardiac: Reports No Symptoms
Abdomen/GI: Reports No Symptoms
: Reports No Symptoms
Musculoskeletal: Reports No Symptoms
Skin: Reports No Symptoms
Neurological: Reports Other (Difficulty speaking)
Endocrine: Reports No Symptoms
Hematologic/Lymphatic: Reports No Symptoms
Psych: Reports No Symptoms
Physical Exam
Vital Signs
Vital Signs
Temp Pulse Resp BP Pulse Ox
99.1 F 90 21 123/88 100
03/30/25 19:09 03/30/25 20:16 03/30/25 20:16 03/30/25 20:16 03/30/25 19:30
Physical Exam
General: Well Developed, Well Nourished and No Apparent Distress
HEENT: NormoCephalic, Moist mucous membranes and Atraumatic
Respiratory: Clear
Cardiac: S1/S2 and Regular Rhythm; No Murmur or Rub
GI: Soft, Non Tender, Non Distended and Normal Bowel Sounds; No Organomegaly
Rectal: Deferred by Provider
Musculoskeletal: No Clubbing, No Cyanosis and No Edema
Skin: No Rash
Neuro: Nonfocal/grossly intact and Other (Aphasia, word finding difficulties with jumbled words)
Laboratory Results
-
03/30/25 19:16
03/30/25 19:16
Laboratory Results
PT 12.7 Sec (11.4-14.6) 03/30/25 19:16
INR 0.92 03/30/25 19:16
APTT 23.0 Sec (23.4-35.0) L 03/30/25 19:16
Total Bilirubin 0.8 mg/dl (0.2-1.3) 03/30/25 19:16
AST 26 U/L (14-36) 03/30/25 19:16
ALT 17 U/L (0-35) 03/30/25 19:16
Alkaline Phosphatase 67 U/L (38-126) 03/30/25 19:16
Data Reviewed
-
CT Scan: Report Reviewed by me
Medical Tests (Nuc Med, Echo, EKG etc): Image Personally Visualized and interpreted
Lab Data: Labs Reviewed by me
Old Records: Reviewed
Impression/Plan
-
IMPRESSION:
69-year-old with past medical history of TIA, hyperlipidemia anxiety and depression, recent episode of syncope without any identified etiology who presents to the emergency department with acute onset of aphasia about [address] head negative,
CT angio negative for acute stenosis, aneurysm, bleed or acute stroke, hypertensive but otherwise hemodynamically stable. ECG is unremarkable. Electrolyte BUN/creatinine were all normal, CBC normal. Currently NIHSS equals 1.
PLAN:
CVA -CVA with hypertensive urgency/emergency
-Admit to ICU
-Status post tenecteplase, continue with tenecteplase/thrombolytic precaution
-SCDs,
-Verify aspirin in a.m.
-Neurochecks every 6
-MRI in a.m.
-Echo
- Neurology consult
- Patient Appointment Coordinator consult
-Physiatry consult
-PT OT
-Lipid panel, A1c
-Nicardipine drip to maintain SBP/DBP of 180/105 (discontinued secondary to drop in blood pressure). Will continue with as needed labetalol for now.
Code status - Full cpde
[2025-03-30 21:17] LABS: Glucose - Point of Care 119 mg/dl (70-99)
[2025-03-30] MEDS: PRECEDEX 100 IV (22:00)
[2025-03-30 22:56] LABS: Urine Character Clear (Clear)
[2025-03-30 23:06] LABS: Urine Red Blood Cell 0-2 /HPF (0-2); Urine Squamous Cell 0-2 /LPF (Few); Urine White Cell 0-2 /HPF (0-5)
--- NOTE | 2025-03-30 23:45 | PTCARENOTE ---
pt rec'd from ER around 2100. ICU HADOOP APPLICATION DEVELOPER at bedside. TNK given in MAR at 2006. handoff NIH done, NIH 8 (aphasia noted, pt ARANGO evenly, pupils 6mm b/l brisk, visible droop to R side, pt unable to smile or raise eyebrows, does not follow finger on
assessment). pt extremely restless. pt quickly placed in 4 pt restraints for safety after attempting to get OOB and thrashing around. ICU HADOOP APPLICATION DEVELOPER reached out to neuro MD, precedex gtt initiated. Cardene off upon admission. BP goal <180/105. SR on
monitor. SCDs on. on RA, satting 100%. remains NPO, unable to perform swallow eval. PIVs intact. at bedside during admission, updated on plan of care by this RN and ICU HADOOP APPLICATION DEVELOPER. MRI ordered for AM.
bladder scan @ 2215 for >1200. during straight cath, pt HR dropped to 20/30s, was minimally responsive, and then vomited. pt HR normalized, BP remained stable. 1200ml output noted. ICU HADOOP APPLICATION DEVELOPER to bedside. wilder in place for retention. urine sent. repeat
head CT ordered, pt taken down for scan. remains in 4 points and Precedex remains off. BMP sent.
2330- pt with more periods of intermittent clear speech. able to raise eyebrows at this time, but not smile. remains restless in bed. care continues.
[2025-03-31] VITALS (54 sets, daily range): BP systolic 108–170; BP diastolic 60–106; BMI 23.3
[2025-03-31 00:10] LABS: Blood Urea Nitrogen 20 mg/dl (7-17); Calcium 9.6 mg/dl (8.4-10.2); Carbon Dioxide 21 mmol/L (22-30); Chloride 109 mmol/L (98-107); Estimated Creatinine Clearance 65 ml/min; Glucose 183 mg/dl (70-99); Potassium 3.7 mmol/L (3.5-5.1); Sodium 139 mmol/L (135-145); eGFR > 60.00
[2025-03-31 03:54] LABS: Hematocrit 34.1 % (37.0-47.0); Hemoglobin 11.9 g/dL (12.0-16.0); Mean Corp Hgb Conc. 34.9 g/dL (33.0-37.0); Mean Corpuscular Volume 86.1 fL (81.0-99.0); Platelet Count 218 10^3/uL (130-400); Red Cell Dist. Width 13.2 % (11.5-14.5)
[2025-03-31 03:59] LABS: INR 1.02; PT 13.7 Sec (11.4-14.6)
[2025-03-31 04:08] LABS: Blood Urea Nitrogen 16 mg/dl (7-17); Calcium 9.6 mg/dl (8.4-10.2); Carbon Dioxide 20 mmol/L (22-30); Chloride 108 mmol/L (98-107); Estimated Creatinine Clearance 65 ml/min; Glucose 169 mg/dl (70-99); HDL Cholesterol 73 mg/dl; LDL Cholesterol, Calculated 79 mg/dl; Magnesium 1.8 mg/dl (1.6-2.3); Potassium 3.6 mmol/L (3.5-5.1); Sodium 138 mmol/L (135-145); Very Low Density Lipoprotein 14 mg/dl (0-30); eGFR > 60.00
[2025-03-31 04:30] LABS: VerifyNow Aspirin 525 ARU
[2025-03-31 04:37] LABS: APTT 18.3 Sec (23.4-35.0)
--- NOTE | 2025-03-31 04:38 | PTCARENOTE ---
AM labs sent. pt more calm at this time. speech noticeably more clear at times, still aphasic. slow to follow commands at times but eventually is able to. NIH 6 currently. call navarro in reach. care continues.
--- NOTE | 2025-03-31 04:46 | W.PN.UPDATE ---
Update Note
Progress Note Update
03/30/25
220- Patient having significant agitation and restlessness. Globally aphasic and having difficultly with listening to re-orientation. Patient so agitated she was becoming harm to herself and staff and needed to be 4 point restrained. at
bedside and feels she is having lots of anxiety and has terrible anxiety at baseline. Called Dr. Browning, neurologist, recommendations given for Precedex gtt vs benzodiazepines for severe anxiety and patient safety if needed. Precedex gtt ordered and
initiated, would be more beneficial to be able to titrate to observe neurological examination.
2230- Patient had not voided, noted via bladder scan patient to have >1200cc of urine. During urinary catheter insertion, patient had bradycardia with heart rate down to 10. She vomited moderate amount, never lost consciousness and heart rate
returned back to 80s when the urinary catheter started draining. Probable vasovagal/micturition syncope event secondary urinary draining after catheter insertion and urinary retention. Patient continues to be globally aphasia and was not able to
verbalize, continues to have difficulty understanding complex commands, can intermittently follow simple commands. Concern after syncopal event that patient voided 1200cc of clear urine. Unclear if urinary retention is ongoing underlying problem
vs stroke vs intracranial swelling. Called Dr. Browning, neurologist, Dr. Manriquez spine nurse, and Dr. Snell hospitalist with acute urinary retention and large urinary output with clear urine recommendations received ordered Ctscan of head w/o IV
contrast and urinary labs (sodium/osmo)/bmp. Urine sodium 111 but urine osmolality 351; Ctscan of the head negative. Patient restless but not as agitated as previously, wilder in for acute retention.
In review of the patient's chart and previous stay January 2025 patient had: Vasovagal syncope, Mild toxic encephalopathy, and Speech changes post syncope.
--- NOTE | 2025-03-31 07:34 | CON.INTV ---
Addendum entered and electronically signed by Erna Patten MD 03/31/25 17:30:
Patient transferred out of ICU. We will sign off. Please call with questions
Original Note:
Consultation
Consultation Request
Date/Time Consultation Requested: 03/31
Date/Time Consultation Performed: 03/31
Reason for Consultation: Critical care
Medical History
-
History of Present Illness:
History primarily obtained from the chart as patient with expressive aphasia at this time. 69-year-old female with history of stroke in the past, TIA, hypercholesterolemia who presents with aphasia while at dinner at approximately 5 PM. Stroke
alert was called, patient was brought to [facility] where upon arrival pulse 81, breathing at 29, blood pressure 208/86. Initial imaging unremarkable. TNK was administered at 2005. Patient was also given labetalol, hydralazine for
elevated blood pressure. Events overnight noted. Patient became increasingly agitated, repeat imaging was obtained. Patient with history of significant anxiety noted. According to records, patient has had similar presentation with TIA in the
past. We are asked to help from critical care standpoint
Of note, patient had what sounds like vasovagal event with Singh catheter placement overnight with bradycardia, brief asystole with resolved spontaneously. Patient with history of vasovagal syncope in the past
At this time, NIH score is improved down to 4. Patient with no evidence of focal weakness, moving all extremities, pupils are equal. She does have an expressive aphasia. History of vasovagal syncope in the past. History of pulmonary nodule
Recent hospital stay and discharged 02/09/2025 for slurred speech, loss of consciousness. At that time 4 mm right lower lobe nodule was identified
.
PMH: Hypertension, hyperlipidemia, history of TIA x 2 with expressive aphasia
Past Medical History
Past Medical History: None (See above)
Past Surgical History: None (See above)
Social History
Tobacco: Non-smoker
Alcohol: None
Drug: None
Personal:
Living: With Family
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
Family History
Family History: Reviewed & Not Pertinent (sister at age 68 from PE following travel, one brother alive. 1 daughter with asthma. parents F from ca? mother valvular dz)
Allergies / Home Medications
Allergies
Allergy/AdvReac Type Severity Reaction Status Date / Time
No Known Allergies Allergy Verified 03/30/25 18:49
Home Medications
�Medication �Instructions �Recorded �Confirmed �Last Taken �Type
escitalopram oxalate 20 mg tablet 20 mg PO QPM Mental Health/Anxiety 07/11/23 02/08/25 07/14/23 History
rosuvastatin 10 mg tablet 10 mg PO QPM High Cholesterol 07/11/23 02/08/25 07/14/23 History
aspirin 81 mg tablet,delayed 81 mg PO DAILY #0 tabs 07/13/23 02/08/25 07/15/23 Rx
release
clonazepam 0.5 mg tablet 0.5 mg PO HSPRN PRN anxiety/sleep 07/15/23 02/08/25 Unknown History
Review of Systems
-
Unable to Obtain full review of systems at this time due to: Acuity (Patient with expressive aphasia)
All other systems: Negative unless noted
Vitals / Labs / Diagnostic Testing
Vital Signs
Temp Pulse Resp BP Pulse Ox
98.1 F 87 18 131/89 98
03/31/25 03:43 03/31/25 07:00 03/31/25 07:00 03/31/25 07:00 03/31/25 07:00
Lab Data
03/31/25 03:32
03/31/25 03:32
Laboratory Results
03/30/25 03/31/25
19:16 03:32
PT 12.7 13.7
INR 0.92 1.02
APTT 23.0 L 18.3 L
Diagnostic Testing:
Physical Exam
-
HEENT: Normocephalic and Anicteric
Cardiovascular: S1/S2, Regular Rhythm and Murmur (n)
Respiratory: Wheeze (n), Rales (Minimal at base), Rhonchi (n) and Non-Labored Respirations
GI: Soft, Non Distended and Non Tender
Neurology: Awake, Alert, No Motor Deficits and Other (Expressive aphasia noted)
Skin: Good Color and Other (No rash, no clubbing)
General: Comfortable
Assessment
-
69-year-old female with history of TIA x 2 in the past with expressive aphasia, recent discharge 02/09/2025 for vasovagal syncope, now presents with recurrent expressive aphasia in the setting of hypertension, stroke alert, received TNK at 2005 on
03/30. Patient had episode of agitation through the night with repeat imaging unremarkable. She also had an episode of vasovagal syncope during Singh catheter placement. We are asked to help from critical care standpoint
Acute stroke with expressive aphasia
Questionable weakness noted per records, resolved
s/p TNK at 2005 on 03/30
Current NIH score of 4
History of TIA in the past with negative neurology and cardiology workup
Syncope with vasovagal features
Recently hospitalized in January 2025, workup negative
Urinary retention
Conditions present prior to admission
Hyperlipidemia
History of depression/anxiety
4 mm right lower lobe nodule
Mild crackles on exam
Plan/recommendations
At this time, patient remains critically ill but appears to be improving post TNK administration on 03/30 at 2006 hrs.
NIH score 4
Neurological exam nonfocal. Expressive aphasia noted
Head CT imaging unremarkable, head and neck CT angiogram unremarkable
Presently, blood pressures are improved, 138/88
Has received hydralazine and nicardipine. Had received dose of labetalol around 7 PM yesterday. This has been discontinued given episode of vasovagal symptoms overnight during Singh catheter placement
Moving forward patient appears to be improved overall from neurological standpoint. Recent hospital stay in January reviewed
Patient with history of vasovagal syncope and falls, loss of consciousness.
Patient with history of severe anxiety at baseline
Urinary retention with significant urine output. Urine studies noted
Follow clinically
Neurology has been consulted
Patient has had extensive cardiology and neurology workup in the past
Await repeat imaging 24 hours
Continue with close blood pressure monitoring, target less than 180/105
Will avoid labetalol at this time given bradycardia overnight
Speech evaluation
Patient may benefit from outpatient sleep evaluation given constellation of symptoms and history of recurrent TIA/stroke
DVT prophylaxis: Mechanical prophylaxis for now
Reviewed with critical care nursing, respiratory care, pharmacy
Reviewed wih at length by phone
TCCT 35 min
--- NOTE | 2025-03-31 08:30 | PTCARENOTE ---
Received pt awake and alert.+5/5 ARANGO.No drift/droop noted.Expressive aphasia noted.Follows commands consistently with minimal non verbal cuing.NIHSS completed in tandem with outgoing RN.NIHSS has scored lower at 4.Assisted OOB to chair with minimal
assist.SR noted.Lungs CTA.POX 98% on RA.NPO.No BM.Singh draining yellow urine.Plan of care discussed with pt.
--- NOTE | 2025-03-31 09:20 | PTOTSP ---
Speech Language Pathology
Pt seen for speech/language evaluations via the Quick Aphasia Battery (QAB), form 1. Pt with an overall score of 2.94, indicative of overall severe deficits. 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
speech, and alexia with agraphia.
Of note, similar presentation during evaluation in June 2023 with resolution of symptoms by next day with negative brain MRI. Neurology noted lingual thrusting consistently during their exam, which was not noted during RECYCLING COORDINATOR evaluation. Pt also
noted to have ataxic movements and shaking with L hand, which was not noted by RN. Inconsistencies noted in examinations.
Pt also seen for clinical bedside swallow evaluation. P.O. trials of puree, regular solids, and thin liquids provided. Adequate mastication, bolus formation, and A-P transit noted with no oral residue. No overt signs of aspiration.
Recommend:
(1) Regular solids/thin liquids
(2) General aspiration precautions
(3) Meds as tolerated
(4) RECYCLING COORDINATOR to continue to follow for speech/language tx. Further dysphagia tx not indicated.
--- NOTE | 2025-03-31 09:55 | CON.NEURO ---
Addendum entered and electronically signed by Rick Silverman MD 03/31/25 16:07:
Studies reviewed.
I have personally examined the patient. I reviewed and agree with the RN LONG TERM CARE's Note.
My addenda:
Awake, alert, interactive. No acute distress.
Speech stuttering with some preserved short phrases.
Follows 2-step requests w/o difficulty. No tremor.
Extra-ocular movements grossly intact.
Facial movements full and symmetric. Hearing intact to normal conversational volume.
Normal UE movements bilaterally.
Neck: full ROM.
Chest: no dyspnea
Heart: no JVD
Ext: (-) Clubbing, (-) Cyanosis, (-) Edema
IMPRESSIONS/RECOMMENDATIONS:
Abrupt onset of aphasia, recurrent. Patient had identical symptoms in 2022 at which time MRI imaging of the brain failed to demonstrate abnormalities and the patient had complete resolution of symptoms. Patient was described as having a gait
dysfunction previously of unclear etiology.
Differential diagnosis includes functional neurological disorder, acute ischemic stroke is much less likely based on the variability of the patient's examination
Cerebellar atrophy demonstrated may not have any role to play in the patient's current aphasia but may be associated with the patient's gait dysfunction
Agree with pursuit of MRI of brain for completeness
If no findings by MRI, would not provide aspirin. If there are findings by MRI, would initiate aspirin 81 mg daily
Continue rosuvastatin
Will continue to follow pending results.
Original Note:
Documented by User: Jenna Way NP 03/31/25 15:28
Neuro Assessment/Plan
Assessment
This is a 69-year-old female with past medical history significant for hyperlipidemia, prior history of a TIA x 2 (given TNK), and depression and anxiety who presented to [facility] on 03/30/2025 with episode of aphasia.
Head CT 03/30/2025: No evidence of acute intracranial abnormality.
Head and neck CTA : There is no evidence for intracranial high-grade stenosis or large vessel occlusion.
There is reflux of contrast into the left internal jugular vein from left arm injection, with resultant streak artifact from dense contrast limiting evaluation of the left neck.
Given this limitation, there is no evidence for hemodynamically significant stenosis of the common carotid arteries, carotid bulbs, or proximal internal carotid arteries bilaterally. Minimal calcification involving the proximal right ICA.
Beaded appearance of the cervical internal carotid arteries bilaterally, suggestive of fibromuscular dysplasia. No evidence for high-grade stenosis.
Normal appearance of the vertebral and basilar arteries. Normal appearance of the posterior cerebral arteries
Head CT 04/02/2025: No evidence of acute intracranial abnormality.
Brain MRI pending:
Labs: Aspirin fuction test 525, Hgb A1C 5.7, Cholesterol 166, LDL 79
Brain MRI 11/30/2024: No evidence of acute intracranial abnormality. Mild atrophy. Mild to moderate T2 and FLAIR white matter hyperintensities, commonly seen with aging and usually attributed to small vessel ischemic disease. Findings appear stable
dating back to MRI of the brain of July 12, 2023.
Brain MRI 07/12/2023: There are no focal or acute intracranial abnormalities. There is mild-moderate cortical and cerebellar atrophy with moderate nonspecific white matter changes.
Plan
Impressions:
I. Abrupt onset of global aphasia, now s/p TNK for suspected CVA although less likely given patient experienced similar symptoms twice before and given TNK
II. Cerebellar atrophy as seen on brain MRI
Recommendations:
-goal blood pressure over the next 24 hours would be less than 180/105 mmHg
-check MRI of the brain within 22-32 hours of TNK without contrast for localization of the suspected stroke
-hold all antiplatelets, OAC meds, DOAC meds, heparinoids for 24 hours following TNK
-LDL 79 with goal<70, change rosuvastatin 10 mg to atorvastatin 40 mg nightly
-goal blood glucose levels for patient would be less than 180 mg/dL
-Speech evaluation
-neurochecks and NIHSS per unit guidelines
-DVT prophylaxis with sequential compression devices over next 24 hours, can be started on Enoxaparin subcutaneous for DVT prophylaxis beginning 24 hours after TNK provision.
-medical educational materials will be provided
-neuropsychological evaluation as outpatient
-check B12
Consultation
Order
Date of Consultation: 03/31/25
Requesting Provider: hospitalist
Reason for Consult: aphasia
Subjective/Objective
Subjective Data
Date of Service: March 31, 2025
Adapted from note by Dr. Marinelli from June 2023:
'Patient is a right-handed 67-year-old woman with a past medical history of anxiety, hyperlipidemia, degenerative disc disease with acute onset of aphasia starting approximately 5 PM. While in the ER she required blood pressure control and was
administered TNK for acute ischemic stroke at approximately 2002. Overnight patient did have significant agitation did require restraints as well as low-dose of IV lorazepam. Patient does not take any antiplatelet at baseline she does take
rosuvastatin at home. She denies any significant alcohol or tobacco use. Similar symptoms 8-9 months prior.
Family history significant for a sister who in her mid 60s from DVT/PE.
Neurologic examination remarkable for a moderate to severe mixed expressive and receptive aphasia, otherwise cranial nerves and motor function are intact.
CT head noncontrast showed no early ischemia or large acute infarction, no chronic infarction no hemorrhage seen, normal symmetric ventricles with no hydrocephalus no masses or edema are seen.
CT of the head neck abdomen appreciate significant carotid stenosis or vertebral artery abnormality, within the brain there is no significant stenosis, occlusion, aneurysm or vessel malformations.
Assessment: Presumed left MCA ischemic stroke affecting area near the left frontal inferior gyrus or superior temporal gyrus given aphasia as the predominant symptom. CTA of the head and neck does not show any significant stenosis within the brain
or carotid artery and no signs of dissection. Patient has a history of hyperlipidemia and has family history of DVT/PE in her sister. Further work-up with MRI and transthoracic echocardiogram open needed to best assess etiology of stroke
Recommendations
-Blood pressure goal less than 180/105 for 24 hours after TNK administration
-Neurologic checks and NIH stroke scales
-Out of restraints as able, reassurance and can provide small dose as needed lorazepam or her home clonazepam
-Check MRI of the brain without contrast approximately 24 hours after TNK administration
-Speech physical therapy evaluation
-Monitor on cardiac telemetry and check transthoracic echocardiogram
-Hold antiplatelet anticoagulant and any heparin DVT prophylaxis product
-Continue home dose rosuvastatin as LDL is less than 70'
She presented to [facility] on 03/30/2025 with episode of aphasia since 5 PM. Patient was seen in urgent care 2 days ago and found to be hypertensive to the 170s systolic. She was not started on any medications at that time. She has chronic anxiety and
has been having difficulty sleeping which she uses clonazepam 0.5 mg nightly. She is also on Lexapro 50 mg daily in the evenings. She has otherwise been in usual state of health. On the day of admission, she felt dehydrated and was about
to give her some more hydration. Daughter reported that the patient started having difficulty speaking. This is similar to her previous two episodes for TIAs in the past. EMS was called and patient brought to the emergency department as a stroke
alert. She had no focal neurological deficits otherwise.
In the emergency department patient was hypertensive blood pressure 158/71 on nicardipine, pulse rate 81 she is satting 100% with a temp of 99.1. ECG shows normal sinus rhythm at a rate of 76. No acute ischemic changes. CBC unremarkable,
electrolyte BUN/creatinine normal. CT angio of the head and neck shows no evidence of intracranial high-grade stenosis or large vessel occlusion, and minimal calcification involving the right proximal right ICA noted, beaded appearance of the
cervical internal carotid arteries bilaterally suggestive of fibromuscular dysplasia but no evidence of high-grade stenosis. Her NIHSS was 1, she was given TNK at approximately 1908.
She is currently still globally aphasic with NIHSS 5.
Objective Data
Vital Signs
Temp Pulse Resp BP Pulse Ox
97.7 F 77 21 138/88 97
03/31/25 07:45 03/31/25 09:08 03/31/25 09:08 03/31/25 09:08 03/31/25 08:00
Lab Results
03/31/25 03:32
03/31/25 03:32
PT 13.7 Sec (11.4-14.6) 03/31/25 03:32
INR 1.02 03/31/25 03:32
APTT 18.3 Sec (23.4-35.0) L 03/31/25 03:32
Sodium 138 mmol/L (135-145) 03/31/25 03:32
Potassium 3.6 mmol/L (3.5-5.1) 03/31/25 03:32
BUN 16 mg/dl (7-17) 03/31/25 03:32
Glucose 169 mg/dl (70-99) H 03/31/25 03:32
Calcium 9.6 mg/dl (8.4-10.2) 03/31/25 03:32
Phosphorus 2.7 mg/dl (2.5-4.5) 03/31/25 03:32
LDL Cholesterol, Calc 79 mg/dl 03/31/25 03:32
Patient Allergies
No Known Allergies Allergy (Verified 03/30/25 18:49)
CVA Assessment
NIH Stroke Score
Level of Consciousness: 0 - Alert
LOC Questions: 2-Neither correct
LOC Commands: 0-Performs both correctly
Best Horizontal Gaze: 0-Normal
Visual Barney: 0=Normal, no visual loss
Facial Palsy: 0=Normal, symmetrical
Motor - Right Arm: 0=No drift 10 seconds
Motor - Left Arm: 0=No drift 10 seconds
Motor - Right Le-No drift 5 seconds
Motor - Left Le-No drift 5 seconds
Limb Ataxia: 0-Absent
Sensation: 0-Normal
Best Language: 3-Mute/global aphasia
Dysarthria: 0-Normal
Extinction and Inattention: 0-No abnormality
NIH Total Score:: 5
Review of Systems
-
Unable to obtain full review of systems at this time due to: Aphasia
Physical Exam
-
General: Comfortable and Appears Stated Age
HEENT: Normocephalic, Atraumatic and Anicteric
Neck: Full Range of Motion
Respiratory: No Dyspnea
Cardiac: No JVD
GI: Non-distended
Skin: Unremarkable
Extremities: No Clubbing, No Cyanosis and No Edema
Psych: Confused and Anxious
Extended Neurological Exam
Mood & Affect: Anxious
Attention Span & Concentration: Awake, Alert, Interactive and Mild Difficulty with 2 Step Request
Memory: Reduced
Speech: Expressive Aphasia, Receptive Aphasia and Pressured
Cranial Nerve II: Left Eye: Visual Barney Grossly Intact
Cranial Nerve II: Right Eye: Visual Barney Grossly Intact
Cranial Nerves III, IV, : Extraocular Movement: Extraocular Movement Full in all Directions
Cranial Nerve VII: Facial Symmetry: Normal Facial Symmetry
Cranial Nerve VIII: Hearing: Unremarkable Hearing to Normal Conversational Volume
Cranial Nerves IX, X: Palate Movement: Palate Elevation Symmetric
Muscle Strength, Overall: Full Throughout
Muscle Bulk & Tone: Bulk Unremarkable and Tone Unremarkable
Pronator Drift: No Drift in Upper Extremities and No Drift in Lower Extremities
Deep Tendon Reflexes: Unremarkable Throughout
Coordination: [id number]-[id number] Testing Unremarkable and Reaches for Objects without Difficulty
Data Reviewed
-
CT-A: Report Reviewed and Image Reviewed
CT Head: Report Reviewed and Image Reviewed
MRI Head: Ordered, Report Reviewed and Image Reviewed
Labs: Report Reviewed
Lipid Profile: Report Reviewed
HgbA1C: Pending
Reviewed with: Physician and Patient
Old Records: Summarized
Medications
-
Active Medications
Generic Name Dose Route Start Last Admin
Trade Name Freq PRN Reason Stop Dose Admin
Acetaminophen 650 mg 03/30/25 20:51
Acetaminophen 325 Mg Tablet PO 04/27/25 20:50
Q4HPRN PRN
HERMOSILLO, mild pain, or temp >100.4F
Escitalopram Oxalate 20 mg 03/31/25 18:00
Escitalopram 20 Mg Tablet PO 04/28/25 17:59
QPM [place]
Nicardipine/Sodium Chloride 40 mg in 200 mls @ 0 mls/hr 03/30/25 20:51
Cardene IV
PER PROTOCOL N[place]ON
Protocol
Per Protocol
Ondansetron HCl 4 mg 03/30/25 22:28
Ondansetron 4 Mg/2 Ml Vial IV 04/27/25 22:27
Q6HPRN PRN
NAUSEA/VOMITING
Rosuvastatin Calcium 10 mg 03/31/25 18:00
Rosuvastatin (Crestor) 10 Mg Tablet PO 04/28/25 17:59
QPM [place]
Sodium Chloride 0 flush 03/30/25 21:00
Sodium Chloride 0.9% (Flush) Syringe IV 04/27/25 20:59
PER PROTOCOL N[place]LEON
Home Medications
�Medication �Instructions �Recorded
escitalopram oxalate 20 mg tablet 20 mg PO QPM Mental Health/Anxiety 07/11/23
rosuvastatin 10 mg tablet 10 mg PO QPM High Cholesterol 07/11/23
aspirin 81 mg tablet,delayed 81 mg PO DAILY #0 tabs 07/13/23
release
clonazepam 0.5 mg tablet 0.5 mg PO HSPRN PRN anxiety/sleep 07/15/23
Past History
Past History
ED Past Medical History: Other (TIA, hypercholesterolemia)
ED Past Surgical History: Gynecological
Family/Social History
Tobacco: Non-smoker
Alcohol: None
Drug: None
Personal:
Living: with family

Documented by User: Rick Silverman MD 03/31/25 15:50
CVA Assessment
NIH Stroke Score
NIH Total Score:: 5
[2025-03-31 10:19] LABS: Glycohemoglobin (HgbA1c) 5.7 % (4.0-5.6)
--- NOTE | 2025-03-31 12:23 | PTCARENOTE ---
Pt assessed.No change in assessment noted.
--- NOTE | 2025-03-31 14:34 | W.PN.HOSP.TC ---
Addendum entered and electronically signed by Toney Tucker MD 03/31/25 19:57:
Attending Addendum-
I saw and evaluated the patient. I reviewed the resident�s note and agree with findings and plan as documented in the resident�s note. Sub: overnight night had severe agitation and required precedex and restraints. Also found to be retaining urine
and wilder placed. When placed patient vagaled and had a period of asystole which quickly resolved. Currently patient continues to have expressive aphasia which obvious frustration. Denies neurological deficits. Wants to go home. Full 12 point ROS
reviewed and negative except as documented Exam: Vitals reviewed in chart GEN-mild distress due to aphasia. heart RRR no M/R/G lungs CTA B/L abd soft NT ND LE no edema Neuro AAO x 3 expressive aphasia no cerebellar deficits MS 5/5 mild tongue
deviation to right. sensation intact wilder in place draining clear yellow urine
Plan:
#Expressive Aphsia
R/O CVA
-hypertensive urgency/emergency
-transfer out of ICU
-Status post tenecteplase, continue with tenecteplase/thrombolytic precaution
-SCDs,
-no need for asa if MRI neg
-Neurochecks every 6
-MRI to be checked 03/31
-Echo 03/31-Normal left ventricular systolic function. Normal regional wall motion. Left ventricular ejection fraction is 60-65%
-Neurology input appreciated-possible functional neurological disorder, check MRI
-Senior Instrumentation Engineer input appreciated
-PT OT
-Lipid panel, A1c
-Nicardipine drip weaned off
-maintain normotension
#Depression Anxiety
- episode fo agitation requiring restraints and Precedex
- now back damion baseline- precedex dc'd
- dc restraints
- restart home lexapro and clonazepam- PDMP reviewed
# Urinary Retention
- continue Wilder for now
- TOV in am
# Vasovagal Syncope/Autonomic Hypersensitivity
- high vagal tone with period of asystole self resolved
- check echo
- check TSH
# Leukocytosis
- stress rxn
- repeat CBC in am
Code status - Full code
DVTp- scds recent TNK
Dispo DC home in am
ACP
Patient consented to discuss, was alone but verified with verbally time spent explanation of advance directives, changes in health status, patient�s health care wishes if the patient becomes unable to make health decisions, goals of care,
code status, and prognosis,- 16 minutes
Time spent coordinating care, review of plan of care with resident, personally reviewed previous records in EMR, med rec, labs, radiology, d/w nursing, family total time documented is exclusive of any additional time listed that was spent in advance
care planning discussion -�51 minutes
Original Note:
Today's Communication/Plan
-
Echo
Brain MRI
hold OAD x24hrs post TNK
c/w Neuro checks
Assessment / Plan
Assessment / Plan
69 year old female with a PMHx of HLD, prior TIAx2, depression, severe anxiety who presented to the ED with <24hours of expressive aphasia.
#TIA vs. CVA
#Expressive Aphasia
- Expressive aphasia with history of prior TIAx2
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
- CT head negative for acute intracranial abnormality
- received TNK at 20:06 - c/t OAC, DAPT for 24 hours post TNK
- LDL 79, goal would be <70 -- increase statin
- Cleared by speech this AM -- advance to regular diet with thin liquids
- c/w BP control, pressures currently below 180/105
- c/w neuro checks
- neuro following; appreciate recs
- pending brain MRI, ECHO
#HLD
- home does statin rosuvastatin 10mg
- Lipid Panel showing TC 166, LDL 79, HDL 73 TGs 72 -- goal LDL should be <70. Will increase statin to 20mg Rosuvastatin.
#Anxiety
- c/w lexapro, clonazepam QHS prn for anxiety
- can give one dose 0.5mg Ativan for brain MRI
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
- evidence on imaging suggestive of FMD in the BL carotid arteries
- will reach out to to see if she has prior dx as communication is difficult with aphasia
DVT PPx: holding OAC for 24hrs due to TNK
Code Status: Full Code
Anticipated Discharge: 24 - 48 hours
Subjective/Interval History
-
Date of Service: March 31, 2025
Still with expressive aphasia today, subjectively improved from overnight. No new focal neurological symptoms. Off Cardene/Precedex ggt since yesterday. Wilder placed overnight for 1200cc retention. Restraints placed overnight for agitation. Had
episode of symptomatic bradycardia with asystole during catheter insertion which resolved.
Objective Data
-
Labs:
Laboratory Results
03/31/25
03:32
WBC 10.9 H
Hgb 11.9 L
Hct 34.1 L
Plt Count 218
PT 13.7
INR 1.02
APTT 18.3 L
Sodium 138
Potassium 3.6
Chloride 108 H
Carbon Dioxide 20 L
BUN 16
Creatinine 0.7
Glucose 169 H
Calcium 9.6
Vital Signs:
Vital Signs
Temp Pulse Resp BP Pulse Ox
98.5 F 73 15 143/83 99
03/31/25 10:41 03/31/25 12:08 03/31/25 12:08 03/31/25 12:08 03/31/25 12:00
I&O
03/30/25 03/31/25 04/01/25
06:59 06:59 06:59
Intake Total 0 / 0
Output Total 1800 / 1800 200 / 200
Balance -1800 / -1800 -200 / -200
Review of Systems
-
Unable to obtain full review of systems at this time due to: Other (Expressive Aphasia)
History Source: Patient
Constitutional: Reports No Symptoms
EENT: Reports No Symptoms Reported
Respiratory: Reports No Symptoms
Cardiac: Reports No Symptoms
Abdomen/GI: Reports No Symptoms
Breast: Reports No Symptoms
Genitourinary: Reports No Symptoms
Musculoskeletal: Reports No Symptoms
Skin: Reports No Symptoms
Neuro: Reports Tremors and Other (Expressive Aphasia)
Endocrine: Reports No Symptoms
Hematologic / Lymphatic: Reports No Symptoms
Allergy / Immunology: Reports No Symptoms
Physical Exam
-
General: Well Developed, Well Nourished, No Apparent Distress and Comfortable
HEENT: Normocephalic, Atraumatic, Moist Mucous Membranes, Anicteric, [place] Conjunctivae, PERRLA, Nose Appears Normal and Ears Appear Normal
Respiratory: Clear to Auscultation; Negative Wheezes, Rales or Rhonchi
Cardiac: Regular Rhythm and S1/S2; Negative Murmur or Rub
GI: Soft, Nontender, Nondistended and Normal Bowel Sounds
Genito-urinary: No Costovertebral Tender and Wilder
Musculoskeletal: No Clubbing, No Cyanosis and No Edema
Skin: Warm, Dry and IV Access / Catheter Site
Neuro: Other (CN II-XI grossly intact, some deviation of the tongue to the R, no fasciculations, strength and sensation grossly intact in Upper/lower extremities, somewhat tremulous on exam)
Psych: Anxious
--- NOTE | 2025-03-31 15:29 | PTCARENOTE ---
Assumed care at ~1500. NIHSS=4, unchanged from previous RN's assessment. Patient unable to answer LOC questions, severe expressive aphasia remains present. VSS, NSR, HR 90s, BP 139/71 currently. Patient requesting lights out so she can rest. Left w/
call navarro within reach.
[2025-03-31 16:30] LABS: Troponin I < 0.012 ng/ml
[2025-03-31 16:54] LABS: TSH 0.71 uIU/ml (0.47-4.68)
--- NOTE | 2025-03-31 17:11 | PTCARENOTE ---
MRI asking if patient can go to MRI at 17:00. Spoke w/ Jenna neuro ELECTION ASSISTANT who okay'd patient going to MRI at 21 hrs s/p TNK. HR has been stable, 70s, NSR on telemetry. Dr. Amor asked if patient can come off telemetry for MRI. He agreed and
transferred patient to med/surg level of care. Patient currently off unit in MRI.
[2025-03-31 17:13] LABS: Vitamin B12 945 pg/ml (239-931)
[2025-03-31] MEDS: CRESTOR 20 MG PO (17:51)
[2025-03-31] MEDS: LEXAPRO 20 MG PO (17:51)
[2025-03-31 21:17] LABS: Blood Urea Nitrogen 19 mg/dl (7-17); Calcium 9.5 mg/dl (8.4-10.2); Carbon Dioxide 24 mmol/L (22-30); Chloride 108 mmol/L (98-107); Estimated Creatinine Clearance 65 ml/min; Glucose 122 mg/dl (70-99); Potassium 3.1 mmol/L (3.5-5.1); Sodium 138 mmol/L (135-145); eGFR > 60.00
[2025-03-31] MEDS: KLONOPIN 0.5 MG PO (22:14)
--- NOTE | 2025-03-31 23:02 | PTCARENOTE ---
Pt transfer from ICU @ 2245. PT AAOX# mild aphasia noted with assessment. Pt pleasant and cooperative, oriented to room and hospital policies, callbell within reach.
[2025-04-01 00:06] LABS: Troponin I < 0.012 ng/ml
--- NOTE | 2025-04-01 07:14 | W.PN.HOSP.TC ---
Addendum entered and electronically signed by Toney Tucker MD 04/02/25 15:57:
Attending Addendum-
I saw and evaluated the patient. I reviewed the resident�s note and agree with findings and plan as documented in the resident�s note. Sub: Feels great. No new events overnight. 'Im better doc' Full 12 point ROS reviewed and negative except as
documented Exam: Vitals reviewed in chart GEN-NAD. heart RRR no M/R/G lungs CTA B/L abd soft NT ND LE no edema Neuro AAO x 3 speech fluent no cerebellar deficits MS 5/5 mild tongue deviation to right. sensation intact wilder in place draining
clear yellow urine
Plan:
#Expressive Aphasia - FND
R/O CVA
-hypertensive urgency/emergency
-Status post tenecteplase, continue with tenecteplase/thrombolytic precaution
-SCDs,
-no need for asa if MRI neg
-Neurochecks every 6
-MRI brain 03/31-No acute intracranial abnormality
-Echo 03/31-Normal left ventricular systolic function. Normal regional wall motion. Left ventricular ejection fraction is 60-65%
-Neurology input appreciated-possible functional neurological disorder
-Fish Icer input appreciated
-PT OT
-Lipid panel, A1c
-Nicardipine drip weaned off
-maintain normotension
- cont asa and switch to atorva per neuro
- ok to DC
#Depression Anxiety
- episode fo agitation requiring restraints and Precedex
- now back damion baseline- precedex dc'd
- dc restraints
- restarted home lexapro and clonazepam- PDMP reviewed
# Urinary Retention
- successful TOV after wilder removal
# Vasovagal Syncope/Autonomic Hypersensitivity
- high vagal tone with period of asystole self resolved
- check echo-no issues
- check TSH - WNL
# Leukocytosis
- stress rxn
- resolved
Code status - Full code
DVTp- scds recent TNK
Dispo DC home
Time spent coordinating care, DC planning, review of DC plan of care with resident, transition of care, review of records, med rec/scripts sent electronically, consults, notes, d/w consultants, nursing, family, and CM� 32 mins >50% of this time was
devoted to counseling and coordination of care
Original Note:
Today's Communication/Plan
-
Probable discharge home today pending TOV
Assessment / Plan
Assessment / Plan
69 year old female with a PMHx of HLD, prior TIAx2, depression, severe anxiety who presented to the ED with <24hours of expressive aphasia.
#TIA vs. CVA vs. functional neurologic disorder
#Expressive Aphasia
- Expressive aphasia with history of prior TIAx2
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
- CT head negative for acute intracranial abnormality
- received TNK at 20:06 - c/t hold OAC, DAPT for 24 hours post TNK -- ok to resume if needed
- LDL 79, goal would be <70 -- increase statin
- Cleared by speech this AM -- advance to regular diet with thin liquids
- c/w BP control, pressures currently below 180/105
- c/w neuro checks
- neuro following; appreciate recs
- Brain MRI no acute intracranial abnormality -- no need for aspirin per neuro
- ECHO -- LVEF 60-65%, normal systolic/diastolic function, no change from prior 2022
- Aphasia resolved
#Acute Urinary Retention
- Wilder placed for AUR of 1200cc
- Clear urine from wilder, no urinary sx
- Will d/c Wilder today
#HLD
- home does statin rosuvastatin 10mg
- Lipid Panel showing TC 166, LDL 79, HDL 73 TGs 72 -- goal LDL should be <70. Will increase statin to 20mg Rosuvastatin
- c/w Rosuvastatin 20mg
#Anxiety
- c/w lexapro, clonazepam QHS prn for anxiety
- can give one dose 0.5mg Ativan for brain MRI
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
- evidence on imaging suggestive of FMD in the BL carotid arteries
- will reach out to to see if she has prior dx as communication is difficult with aphasia
DVT PPx: SCDs
Code Status: Full Code
Anticipated Discharge: Within 24 hours
Subjective/Interval History
-
Date of Service: April 01, 2025
Feeling much better this morning. Aphasia has resolved.
Objective Data
-
Labs:
Laboratory Results
03/31/25 03/31/25 04/01/25
20:05 20:54 07:13
WBC Pending
Hgb Pending
Hct Pending
Plt Count Pending
Sodium Cancelled 138 Pending
Potassium Cancelled 3.1 L Pending
Chloride Cancelled 108 H Pending
Carbon Dioxide Cancelled 24 Pending
BUN Cancelled 19 H Pending
Creatinine Cancelled 0.7 Pending
Glucose Cancelled 122 H Pending
Calcium Cancelled 9.5 Pending
Vital Signs:
Vital Signs
Temp Pulse Resp BP Pulse Ox
98.4 F 81 16 167/80 98
03/31/25 23:20 03/31/25 23:20 03/31/25 23:20 03/31/25 23:20 03/31/25 23:20
I&O
03/31/25 04/01/25 04/02/25
06:59 06:59 06:59
Intake Total 0 / 0 720 / 720
Output Total 1800 / 1800 975 / 975
Balance -1800 / -1800 -255 / -255
Review of Systems
-
Constitutional: Reports No Symptoms
EENT: Reports No Symptoms Reported
Respiratory: Reports No Symptoms
Cardiac: Reports No Symptoms
Abdomen/GI: Reports No Symptoms
Breast: Reports No Symptoms
Genitourinary: Reports No Symptoms
Musculoskeletal: Reports No Symptoms
Skin: Reports No Symptoms
Neuro: Reports No Symptoms
Endocrine: Reports No Symptoms
Hematologic / Lymphatic: Reports No Symptoms
Physical Exam
-
General: Well Developed, Well Nourished, No Apparent Distress and Comfortable
HEENT: Normocephalic, Atraumatic, Moist Mucous Membranes, Anicteric, Guy Conjunctivae, No Ptosis, PERRLA, Nose Appears Normal and Ears Appear Normal
Respiratory: Clear to Auscultation; Negative Wheezes, Rales or Rhonchi
Cardiac: Regular Rhythm and S1/S2; Negative Murmur, Rub or Gallop
Breast: Deferred by me
GI: Soft, Nontender, Nondistended and Normal Bowel Sounds
Genito-urinary: No Costovertebral Tender, Clear Urine and Wilder
Musculoskeletal: No Clubbing, No Cyanosis and No Edema
Skin: Warm, Dry and Rash
Neuro: AO x 3 and Nonfocal/Grossly Intact
Psych: Calm
[2025-04-01 07:24] LABS: Hematocrit 34.4 % (37.0-47.0); Hemoglobin 11.6 g/dL (12.0-16.0); Mean Corp Hgb Conc. 33.7 g/dL (33.0-37.0); Mean Corpuscular Volume 89.1 fL (81.0-99.0); Platelet Count 192 10^3/uL (130-400); Red Cell Dist. Width 13.9 % (11.5-14.5)
[2025-04-01 07:40] VITALS: BP 122/68
[2025-04-01 07:58] LABS: Troponin I < 0.012 ng/ml
[2025-04-01 08:33] LABS: Blood Urea Nitrogen 18 mg/dl (7-17); Calcium 9.1 mg/dl (8.4-10.2); Carbon Dioxide 21 mmol/L (22-30); Chloride 111 mmol/L (98-107); Estimated Creatinine Clearance 57 ml/min; Glucose 103 mg/dl (70-99); Potassium 3.5 mmol/L (3.5-5.1); Sodium 139 mmol/L (135-145); eGFR > 60.00
--- NOTE | 2025-04-01 09:04 | W.PN.NEURO.1 ---
Today's Communication / Plan
-
.
Neuro Assessment/Plan
Assessment
This is a 69-year-old female with past medical history significant for hyperlipidemia, prior history of a TIA x 2 (given TNK), and depression and anxiety who presented to [facility] on 03/30/2025 with episode of aphasia.
Head CT 03/30/2025: No evidence of acute intracranial abnormality.
Head and neck CTA : There is no evidence for intracranial high-grade stenosis or large vessel occlusion.
There is reflux of contrast into the left internal jugular vein from left arm injection, with resultant streak artifact from dense contrast limiting evaluation of the left neck.
Given this limitation, there is no evidence for hemodynamically significant stenosis of the common carotid arteries, carotid bulbs, or proximal internal carotid arteries bilaterally. Minimal calcification involving the proximal right ICA.
Beaded appearance of the cervical internal carotid arteries bilaterally, suggestive of fibromuscular dysplasia. No evidence for high-grade stenosis.
Normal appearance of the vertebral and basilar arteries. Normal appearance of the posterior cerebral arteries
Head CT 04/02/2025: No evidence of acute intracranial abnormality.
Brain MRI pending:
Labs: Aspirin fuction test 525, Hgb A1C 5.7, Cholesterol 166, LDL 79
Brain MRI 11/30/2024: No evidence of acute intracranial abnormality. Mild atrophy. Mild to moderate T2 and FLAIR white matter hyperintensities, commonly seen with aging and usually attributed to small vessel ischemic disease. Findings appear stable
dating back to MRI of the brain of July 12, 2023.
Brain MRI 07/12/2023: There are no focal or acute intracranial abnormalities. There is mild-moderate cortical and cerebellar atrophy with moderate nonspecific white matter changes.
Plan
Impressions:
I. Abrupt recurrent onset of global aphasia, now s/p TNK for suspected CVA diagnosis which was absent is functional neurological disorder
II. Cerebellar atrophy as seen on brain MRI
change rosuvastatin 10 mg to atorvastatin 40 mg nightly
OK to restart aspirin although diagnosis is functional neurological disorder
Speech evaluation
can be started on Enoxaparin subcutaneous for DVT prophylaxis 24 hours after TNK provision
neuropsychological evaluation as outpatient
check B12
Patient should meet with usual outpatient neurologist.
Subjective/Objective
Subjective Data
Date of Service: April 01, 2025
Not normal, at 90%.
Objective Data
Vital Signs
Temp Pulse Resp BP Pulse Ox
37.0 C 65 16 122/68 96
04/01/25 07:40 04/01/25 07:40 04/01/25 07:40 04/01/25 07:40 04/01/25 07:40
Lab Results
04/01/25 07:13
04/01/25 07:13
PT 13.7 Sec (11.4-14.6) 03/31/25 03:32
INR 1.02 03/31/25 03:32
APTT 18.3 Sec (23.4-35.0) L 03/31/25 03:32
Sodium 139 mmol/L (135-145) 04/01/25 07:13
Potassium 3.5 mmol/L (3.5-5.1) 04/01/25 07:13
BUN 18 mg/dl (7-17) H 04/01/25 07:13
Glucose 103 mg/dl (70-99) H 04/01/25 07:13
Calcium 9.1 mg/dl (8.4-10.2) 04/01/25 07:13
Phosphorus 2.7 mg/dl (2.5-4.5) 03/31/25 03:32
LDL Cholesterol, Calc 79 mg/dl 03/31/25 03:32
Vitamin B12 945 pg/ml (239-931) H 03/31/25 03:32
Patient Allergies
No Known Allergies Allergy (Verified 03/30/25 18:49)
Review of Systems
-
History Source: Patient
All other systems: Reviewed and negative
EENT: Negative Blurry Vision or Swallowing Difficulty
Respiratory: Negative Trouble Breathing
Cardiac: Negative Chest Pain
Abdomen/GI: Negative Incontinence of Stool
Genitourinary: Negative Incontinence
Musculoskeletal: Negative Back Pain or Neck Pain
Neuro: Negative Dizzy or Headache
Physical Exam
-
General: Comfortable and Appears Stated Age
Eyes: Round OU
HEENT: Normocephalic, Atraumatic and Anicteric
Neck: Full Range of Motion
Respiratory: No Dyspnea
Cardiac: No JVD
GI: Non-distended
Skin: Unremarkable
Extremities: No Clubbing, No Cyanosis and No Edema
Psych: Unremarkable
Extended Neurological Exam
Mood & Affect: Mood Unremarkable and Affect Unremarkable
Attention Span & Concentration: Awake, Alert and Interactive
Memory: Unremarkable
Tremor: Hand Tremor Absent and Head Tremor Absent
Speech: Quality Unremarkable and Quantity Unremarkable
Cranial Nerve II: Left Eye: Visual Barney Grossly Intact
Cranial Nerve II: Right Eye: Visual Barney Grossly Intact
Cranial Nerves III, IV, : Extraocular Movement: Extraocular Movement Full in all Directions
Cranial Nerve VII: Facial Symmetry: Normal Facial Symmetry
Cranial Nerve VIII: Hearing: Unremarkable Hearing to Normal Conversational Volume
Muscle Bulk & Tone: Bulk Unremarkable and Tone Unremarkable
Coordination: [id number] Testing Unremarkable and Reaches for Objects without Difficulty
Data Reviewed
-
MRI Head: Report Reviewed
Labs: Report Reviewed
Reviewed with: Physician, Nurse Practioner and Patient
Old Records: Summarized
Past History
Past History
ED Past Medical History: Other (TIA, hypercholesterolemia)
ED Past Surgical History: Gynecological
Social History
Tobacco: Non-smoker
Alcohol: None
Drug: None
Personal:
Living: with family
Medications
-
Medications:
Generic Name Dose Route Start Last Admin
Trade Name Freq PRN Reason Stop Dose Admin
Acetaminophen 650 mg 03/30/25 20:51
Acetaminophen 325 Mg Tablet PO 04/27/25 20:50
Q4HPRN PRN
HERMOSILLO, mild pain, or temp >100.4F
Clonazepam 0.5 mg 03/31/25 14:34 03/31/25 22:14
Clonazepam 0.5 Mg Tablet PO 04/28/25 14:33 0.5 mg
HSPRN PRN Administration
Anxiety
Escitalopram Oxalate 20 mg 03/31/25 18:00 03/31/25 17:51
Escitalopram 20 Mg Tablet PO 04/28/25 17:59 20 mg
QPM NAPOLEON Administration
Ondansetron HCl 4 mg 03/30/25 22:28
Ondansetron 4 Mg/2 Ml Vial IV 04/27/25 22:27
Q6HPRN PRN
NAUSEA/VOMITING
Rosuvastatin Calcium 20 mg 03/31/25 18:00 03/31/25 17:51
Rosuvastatin (Crestor) 20 Mg Tablet PO 04/28/25 17:59 20 mg
QPM NAPOLEON Administration
Sodium Chloride 0 flush 03/30/25 21:00
Sodium Chloride 0.9% (Flush) Syringe IV 04/27/25 20:59
PER PROTOCOL NAPOLEON
--- NOTE | 2025-04-01 10:51 | CM ---
Addendum entered by Pauline Foreman RN 04/01/25 10:54:
IMM reviewed.
Original Note:
Reviewed the chart notes and spoke with the patient at the bedside. Patient resides with spouse in a two story home with no steps to enter. Patient reports no DME/VN/SNF in the past. Patient confirmed her pharmacy of choice is [facility].
Patient has been discharged. Patient's spouse to provide transportation. CM continues to be available to patient/family and is monitoring medical plan for needs at discharge.
Plan: Discharge to home when medically stable. No needs identified at this time.
[2025-04-01 11:10] VITALS: BP 114/65
[2025-04-01 11:36] VITALS: BP 153/82; PULSE 78
[2025-04-01 12:30] VITALS: BP 153/82; PULSE 78
[2025-04-01 12:56] VITALS: BP 167/82; PULSE 63; O2SAT 100
--- NOTE | 2025-04-01 14:37 | W.DCSUMMARY ---
Addendum entered and electronically signed by Toney Tucker MD 04/02/25 15:59:
Read, reviewed, and agree. See same day progress note for additional details. Called patient re resumption of asa and lipitor.
Javier Tucker MD
Original Note:
Documented by User: Sander Amor MD, Resident 04/01/25 17:54
Discharge Summary
Discharge Data
Date of Admission: 03/30/25
Date of Discharge: 04/01/25
Total time spent discharging patient (in min): >30m
-
Pending Results: No
Hospital Course
Discharging Physician : Dr. Sander Amor, Dr. Toney Tucker
Disposition : Home
Primary care physician : Unknown
Principal Discharge diagnosis : Aphasia, Acute Urinary Retention
Chronic Discharge diagnosis : Hyperlipidemia, Anxiety
Hospital Course :
Tucker Merino is a 69 year old lady who came to the emergency room with complaints of <24hours of aphasia. She was in her usual state of health during the day of presentation, then at night developed aphasia which was noticed by family for which she was
brought to the [facility] ED. A stroke alert was called, a stat CT Head, CTA Head and Neck were done. She was given TNK. The patient was admitted to ICU for further workup and management of suspected TIA vs. CVA.
#TIA vs. CVA vs. functional neurologic disorder
#Expressive Aphasia
Patient with prior documented history of admissions for 2 prior TIAs presented with similar symptoms of aphasia concerning for TIA. She was given a dose of TNK and admitted for further workup. She was admitted to ICU for frequent neuro checks and
NIHSS monitoring. There was an episode of agitation overnight which initially required Precedex drip and 4pt restraints. She was initially hypertensive on arrival which did not respond to labetalol or hydralazine and so she was started on
nicardipine drip. She was quickly taken off precedex drip as agitation resolved. She was soon taken off nicardipine drip as her pressure normalized. CT head was done which showed no acute abnormalities. CTA was done (report below) which showed no
significant stenosis. Lipids were checked revealing LDL of 79. Rosuvastatin was increased to 20mg for better LDL control (goal <70) in setting of prior TIA. She was seen by Speech Therapy who cleared her for regular diet with thin liquids. She was
evaluated by neurology who agreed with Brain MRI. An Echo was also ordered per stroke workup. Echo showed no abnormalities and a normal EF (report below). Brain MRI showed no acute abnormalities. Her aphasia resolved completely by hospital day 2.
With negative imaging, resolution of symptoms and evaluation per neuro, it seemed more likely that her symptoms were the result of a functional neurological disorder, rather than an ischemic event. Recommended follow up with Neuropsychiatrist as
outpatient. Aspirin was d/c due to questionable TIA history in light of new evaluation. However, patient may continue again after speaking with PCP if felt to be clinically indicated.
#Acute Urinary Retention
During hospital day 1 she was found to be acutely retaining urine. A bladder scan was done which revealed 1200cc of urine. A Singh catheter was inserted. Singh catheter remained until hospital day 2 when it was removed. She was able to urinate on
her own prior to discharge.
#HLD
Lipid Panel was ordered, showing TC 166, LDL 79, HDL 73 TGs 72 -- goal LDL should be <70. Rosuvastatin increased to 20mg as above.
#Anxiety
She was continued on her home dose of Lexapro and Clonazepam as needed.
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
Evidence on imaging suggestive of Fibromuscular Dysplasia in the BL carotid arteries. No prior history per patient. Patient made aware of results, recommended to follow up with PCP for further imaging/monitoring.
Ultimately she was discharged home with recommendations for Neuropsychiatric testing for concern over possible cognitive deficits and functional neurological disorder which may be contributing to her symptomatology. She was also made aware of
imaging findings concerning for Fibromuscular Dysplasia as evidenced in CTA imaging below and instructed to follow up with PCP -- she expressed understanding.
Important imaging findings :
CT HEAD STROKE ALERT W/o Cont (03/30/2025):
IMPRESSION:
No evidence of acute intracranial abnormality.
CT HEAD/NECK ANG STROKE ALERT (03/30/2025):
IMPRESSION:
There is no evidence for intracranial high-grade stenosis or large vessel occlusion.
There is reflux of contrast into the left internal jugular vein from left arm injection, with resultant streak artifact from dense contrast limiting evaluation of the left neck.
Given this limitation, there is no evidence for hemodynamically significant stenosis of the common carotid arteries, carotid bulbs, or proximal internal carotid arteries bilaterally. Minimal calcification involving the proximal right ICA.
Beaded appearance of the cervical internal carotid arteries bilaterally, suggestive of fibromuscular dysplasia. No evidence for high-grade stenosis.
Normal appearance of the vertebral and basilar arteries. Normal appearance of the posterior cerebral arteries.
CR Chest Portable - 1 View (03/30/2025):
IMPRESSION:
1. Mild acute interstitial cardiogenic pulmonary edema.
2. Mild elevation of the right hemidiaphragm.
CT Head W/o Iv Contrast (03/30/2025):
IMPRESSION:
No acute intracranial abnormality noted.
MR Brain Without Contrast (03/31/2025):
IMPRESSION:
No acute intracranial abnormality.
ECHOCARDIOGRAM (03/31/2025):
CONCLUSIONS
Normal left ventricular chamber size. Normal LV wall thickness. Normal left
ventricular systolic function. Normal regional wall motion. Left ventricular
ejection fraction is 60-65% by visual assessment. Normal diastolic function.
Mitral valve opens normally. Mitral valve opens normally. Mild mitral
regurgitation.
Since echo June 2023, there is no significant change.
Procedure findings :
None.
Discharge Plan
-
Patient Disposition: Home (Routine Discharge)
Discharge Diagnosis/Procedures: Aphasia
Condition: Good
Diet: No restrictions
Activity: No restrictions
Driving Restrictions: As prior to admission
Bathing Restrictions: None
Referrals:
Erna Patten MD [Active, Pulmonary Medicine] - in one to two months
Referral Note: [facility] visit in 2 mo,
sleep clinic thereafter
UNKNOWN - PT DOES,NOT KNOW [Family Provider]
Additional Discharge Medication Instructions: Patient to follow up with Occupational Therapy and Speech Therapy as outpatient (physical scripts for both given to patient)
STOP Rosuvastatin 10mg and Aspirin 81mg.
START Rosuvastatin 20mg.
FOLLOW UP with PCP within 1 week to review medications and hospital visit.
Prescriptions:
New
rosuvastatin 20 mg Tablet
20 mg PO QPM 90 Days Qty: 90 0RF
Continued
escitalopram oxalate 20 mg tablet
10 mg PO QPM
clonazepam 0.5 mg tablet
0.5 mg PO HSPRN PRN (Reason: anxiety/sleep)
Discontinued
rosuvastatin 10 mg tablet
10 mg PO QPM
aspirin 81 mg Tablet,Delayed Release (Dr/Ec)
81 mg PO DAILY Qty: 0 0RF
Discharge Orders:
Discharge Patient (As Directed); Ordered 04/01/25
Ordered By: Sander Amor
Discharge Date and Time
Discharge Date/Time: 04/01/25 14:12
Print Language: GUATEMALAN

Documented by User: Toney Tucker MD 04/02/25 15:53
Discharge Summary
Discharge Data
Date of Admission: 03/30/25
Date of Discharge: 04/02/25
Discharge Plan
-
Patient Disposition: Home (Routine Discharge)
Discharge Diagnosis/Procedures: Aphasia
Condition: Good
Diet: No restrictions
Activity: No restrictions
Driving Restrictions: As prior to admission
Bathing Restrictions: None
Referrals:
Sandor,Pinak S., MD [Active, Pulmonary Medicine] - in one to two months
Referral Note: [facility] visit in 2 mo,
sleep clinic thereafter
UNKNOWN - PT DOES,NOT KNOW [Family Provider]
Additional Discharge Medication Instructions: Patient to follow up with Occupational Therapy and Speech Therapy as outpatient (physical scripts for both given to patient)
STOP Rosuvastatin 10mg and Aspirin 81mg.
START Rosuvastatin 20mg.
FOLLOW UP with PCP within 1 week to review medications and hospital visit.
Prescriptions:
New
rosuvastatin 20 mg Tablet
20 mg PO QPM 90 Days Qty: 90 0RF
Continued
escitalopram oxalate 20 mg tablet
10 mg PO QPM
clonazepam 0.5 mg tablet
0.5 mg PO HSPRN PRN (Reason: anxiety/sleep)
Discontinued
rosuvastatin 10 mg tablet
10 mg PO QPM
aspirin 81 mg Tablet,Delayed Release (Dr/Ec)
81 mg PO DAILY Qty: 0 0RF
Discharge Orders:
Discharge Patient (As Directed); Ordered 04/01/25
Ordered By: Sander Amor
Discharge Date and Time
Discharge Date/Time: 04/01/25 14:12
Print Language: GUATEMALAN
== END 2025-04-01 14:12 | disposition home or self-care (01) | DRG 92 ==
LOC: 2 SOUTH 20:41
PROVIDERS: Nurse Practitioner Family; ADMITTING PHYSICIAN Internal Medicine; ATTENDING PHYSICIAN Family Medicine; EMERGENCY PHYSICIAN Emergency Medicine; OTHER PHYSICIAN Internal Medicine Critical Care Medicine; OTHER PHYSICIAN Psychiatry & Neurology Neurology
PROC: 3E03317 Introduction of Other Thrombolytic into Peripheral Vein, Percutaneous Approach (ICD-10-PCS; 2025-03-30)
DX: R47.01 Aphasia (principal); I16.1 Hypertensive emergency; R29.818 Other symptoms and signs involving the nervous system; E78.00 Pure hypercholesterolemia, unspecified; F41.9 Anxiety disorder, unspecified; F32.A Depression, unspecified; I10 Essential (primary) hypertension; I16.0 Hypertensive urgency; R00.1 Bradycardia, unspecified; R55 Syncope and collapse; D72.829 Elevated white blood cell count, unspecified; R45.1 Restlessness and agitation; R33.9 Retention of urine, unspecified; G31.9 Degenerative disease of nervous system, unspecified; R29.705 NIHSS score 5; Z86.73 Personal history of transient ischemic attack (TIA), and cerebral infarction without residual deficits; Z78.1 Physical restraint status; Z79.82 Long term (current) use of aspirin
CPT/HCPCS: 70450; 70496; 70498; 70551; 71045; 80048; 80053; 80061; 81003; 81015; 82607; 82962; 83036; 83735; 83935; 84100; 84300; 84443; 84484; 85025; 85027; 85576; 85610; 85652; 85730; 87070; 92507; 92523; 92610; 93005; 93306; 96374; 96375; 96376; 97162; 97167; 99291; J3101; Q9967